=== PATIENT | male | born 1950 | race Caucasian/White ===

== ENCOUNTER 2024-09-02 09:58 | Inpatient (IN) | payer MEDICARE, BC, SELFPAY ==
[2024-09-02] VITALS (13 sets, daily range): BP systolic 130–177; BP diastolic 70–111; PULSE 75–91; RESP 18–22; TEMP 37–38; O2SAT 89–96; BMI 30.7
[2024-09-02 11:03] LABS: PCR FLU A Negative PCR FLU A (Negative); PCR FLU B Negative PCR FLU B (Negative); PCR RSV Negative PCR RSV (Negative); SARS PCR* Negative SARS-CoV-2 (Negative)
--- NOTE | 2024-09-02 12:29 | ED.GENADULT ---
HPI - General Adult General Date Seen: 09/02/24 Chief complaint: Cough Stated complaint: Had a cold now exhausted all time, confusion Time Seen by Provider: 09/02/24 12:22 History of Present Illness HPI narrative: 74 yo M with a past history including SVT, PVCs, palpitations, coronary artery disease, BPH, anemia. 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 Last week he was started on Xarelto for treatment of superficial thrombosis. He apparently has a fairly long segment of superficial thrombo phlebitis in the veins of his right thigh near the greater saphenous vein, close to a deep pain. Primary care is the [facility] system. Most recent follow-up visit for his leg superficial thrombus was on August 20. They started him a refill of Xarelto at that time. History is obtained from his today because the patient is very confused She notes that he had the swelling on his right proximal medial thigh last week and that has been getting better. He has been taking the Eliquis. She thinks he might have taken that this morning, but she is not sure. Earlier today, he told her that she took it. here in the ER, he says they did not take his morning meds. She says that last week he had a cold with nasal congestion, sore throat cough but the symptoms largely got better and had resolved by this weekend. He was feeling quite a bit better on Sunday was actually out of the house and running some errands. On Sunday started to feel a bit worse with generalized fatigue, feeling run down. He was resting in bed. He did have a little bit of ongoing cough but not much. No apparent shortness of breath. He has asthma but has not really been using his haler, we do not think. For the past couple of days he has been run down and lying in bed. has been concerned that he is not drinking enough fluids so she has been drinking fluids TM tab him push fluids. Today he was feeling worse. They actually have an appointment to be seen in the clinic but he was getting worse with his weakness and seemed little confused this morning so brought him here. She notes that he was a little off balance and confused this morning. No focal weakness or numbness in 1 arm or 1 leg. No known falls. She brought him here to the ER. In triage she is actually but getting worse. He is more confused now that he was this morning. He has felt warm and had some chills but has not had an objective fever. The patient is confused. Eyes are closed and opens to voice and gentle shoulder shake. GCS 13. When awake he does answer questions and follow simple commands. He requires assistance to sit up. When asked to lay on his back initially does not understand and then tries to roll over too far from his left shoulder to all the way to his right shoulder. Nonfocal confusion. When asked questions directly he says he did think he take his medicines this morning. He denies any pain. No headache. He is not nauseous. He is oriented to place and person but with thinks it is Sunday. reports that he would have a history of ?brain swelling about 20 years ago. He was evaluated and treated initially here at [place] and then was transferred to [facility]. I was able to look in the [facility] chart. I do see that he had a neurology consultation on 09/30/2004. Per neurology records from 09/30/2004... Mr. Rosales is usually in excellent health and very active. ?He has been ill with the flu with URI symptoms over the past week or so. ?He was feeling better on Sunday and was quite active 3 days prior to admission to [facility]. ?On Sunday, he felt quite a bit worse and his noted he was having trouble with speaking and some mildly agitated, possibly confused, behavior. ?In the evening, he had been in to the doctor I believe in the morning and was found to still have a fever. ?He was having a skin lesion followed up on. ?By , he was in bed with confused speech and not taking fluids. ?He was subsequently brought to the [facility] this morning and prior to transfer he had an LP that reportedly showed 11 white blood cells and 28 red blood cells; the white cells were monocytes. ?Protein was elevated at 90, glucose was 60. ?I do not actually have these numbers, this is what I remember I was told. ?He also had a CT scan that showed o obvious mass lesion or hemorrhage. ?No seizure activity has been witnessed ?He has no previous history of similar difficulties. ?There have been no complaints of headache, paralysis or numbness except in early September he was at a conference or a meeting where he sat with his arms crossed a lot, and he developed some numbness in his left little finger which has persisted. ?This is thought to possibly be due to ulnar nerve irritation. 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 ?He has a fever, confusion, no speech suggesting temporal lobe involvement. ?I should mention his neck is not stiff. ?His spinal fluid is borderline abnormal with 11 white blood cells and 28 red blood cells, protein was elevated at 90, all of which would be consistent with this. I would recommend that we go ahead and get an MRI scan, an EEG, cover him with acyclovir. ?He has already been started on broad spectrum antibiotics... Per discharge summary 10/13/2004... 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 He was discharged to inpatient rehab today. His symptoms started 2 weeks after an upper respiratory tract infection. He was experiencing cough and fevers and, then 2 days prior to hospitalization, he developed slurred speech, confusion and reduced level of consciousness. His brought him to the [place] where a CT scan of the head was negative. A lumbar puncture was negative. He was transferred to [facility] for neurologic consultation and further testing including EEG and MRI. 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 An MRI on 10/03 showed no evidence of intracranial hemorrhage or ischemia. The MRI was essentially negative except for sinusitis. An EEG showed diffuse slowing consistent with an encephalopathic process such as metabolic dysfunction or toxic encephalopathy. He was followed closely by Dr. Corral from the neurology service and Dr. Hinton from the infectious disease service. He received supportive care in the intensive care unit including fluid hydration, enteric tube feeds and oxygen. He continued to have fevers. Blood cultures, repeat lumbar puncture and urine cultures were negative. He had positive influenza A IgG, but negative influenza A IgM. His neurologic status gradually improved, and he became more awake on the 3 days leading to discharge to inpatient rehabilitation. His fevers resolved. He has persistent neurologic deficits including slurred speech, double vision and some cognitive deficits. Dr. Corral ordered a repeat MRI with gadolinium which revealed new abnormal signal in the milagros and lower midbrain. The signal abnormalities are consistent with an inflammatory process and less likely due to an infarction. He has improved rapidly in the last few days, however, he had increased lower leg weakness yesterday so Dr. Corral ordered another LP concerned about a demyelinating process. ?Dr. Corral will follow him at [facility]. ?Dr. Turner from [facility] has been following him on the floor and will direct his admission to [facility] today. ? He has dysphasia following the viral encephalitis. His swallow has been evaluated by speech pathology and today he advanced to a regular diet. He was hypertensive and started on a beta milton. His blood pressure is well-controlled. She is on a proton pump inhibitor for prophylaxis. He is also on subcutaneous heparin for prophylaxis. He had high blood sugars requiring NPH and sliding scale insulin which have now been discontinued. He will be discharged to inpatient rehabilitation today. We will fax the MRI and EEG reports to your office for your records. He hopes to be discharged to home as soon as possible. Please call me with any questions. My pager is [phone]. DISCHARGE DIAGNOSES 1. 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 HSV PCR negative x2. Elevated influenza A IgG but negative influenza A IgM. Repeating influenza A IgG titer to compare pending. Followed by Dr. Hinton from infectious disease. Followed by Dr. Corral from neurology. 2. Viral encephalitis - presented with decreased level of consciousness, slurred speech and confusion 2 weeks following a febrile illness. Initial MRI negative. A followup MRI with gadolinium on 10/12 showing new inflammatory abnormality in the milagros and lower midbrain. Inpatient rehabilitation at [facility]. 3. Dysphasia - resolved. 4. Slurred speech and vision changes - secondary to brainstem inflammation from presumed viral encephalitis. 5. Hypertension - controlled on metoprolol 50 mg b.i.d. 6. Nutrition - status post tube feeds, now on a dysphasia diet. Related Data Home Medications ?Medication ?Instructions ?Recorded ?Confirmed diltiazem HCl 180 mg mg PO DAILY 09/02/24 capsule,extended release 24 hr, controlled (DILT-XR) mometasone-formoterol HFA 200 2 puff inhalation 09/02/24 mcg-5 mcg/actuation aerosol inhaler (Dulera) omeprazole 40 mg capsule,delayed mg DAILY 09/02/24 release rivaroxaban 15 mg tablet (Xarelto) 15 mg PO BID 09/02/24 09/02/24 simvastatin 20 mg tablet mg 09/02/24 tamsulosin 0.4 mg capsule mg PO DAILY 09/02/24 Allergies Allergy/AdvReac Type Severity Reaction Status Date / Time No Known Drug Allergies Allergy Verified 09/02/24 10:16 [facility] Social History Non-prescribed substance use: denies use service: No Exam Narrative: Exam Narrative: Primary Survey: A- patent. Speech slightly slurred. Phonation normal. No stridor. B- breathing easily. Lung sounds clear and equal. Oxygen saturation normal on room air C- no active bleeding. Blood pressure stable. Symmetric pulses and cap refill in 4 extremities. D- drowsy and oriented over the to person and place but not date. GCS 13. No focal deficits Constitutional: Appears well-developed and well-nourished.. Robust-appearing laying in bed on his left shoulder. He is drowsy and his provides his initial history. When I talked to him and gently touches shoulder he wakes up in opens his eyes. He seems drowsy and speech is slurred. HENT: Head: Atraumatic. Nose: Nose normal. Mouth/Throat: Oral mucosa is clear but dry, not desiccated or cracked. no trismus. Pharynx normal. Tonsils symmetric. No tonsillar enlargement, erythema, or exudate. Eyes: Conjunctivae normal. EOM normal. Pupils equal, round, and reactive to light. No scleral icterus. Neck: Normal range of motion. Neck supple. No tracheal deviation present. Cardiovascular: Normal rate, regular rhythm. No gallop. No friction rub. No murmur heard. Symmetric radial artery pulses Pulmonary/Chest: Effort normal. No stridor. No respiratory distress. No wheezes. No rales. No rhonchi . No tenderness. Abdominal: Soft. Bowel sounds normal. No distension. No mass. No tenderness. No rebound. No guarding. No CVA tenderness Musculoskeletal: RUE: Normal range of motion. No tenderness. No deformity LUE: Normal range of motion. No tenderness. No deformity RLE: Normal range of motion. No edema. No tenderness. No deformity. He shows me the area on his right proximal thigh where the clot had been. There is perhaps a palpable cord there but no overlying redness. No bruising. No fluctuance or crepitus LLE: Normal range of motion. No edema. No tenderness. No deformity Lymph: No cervical adenopathy. Neurological: Drowsy. GCS 13. Mental status normal. Attention normal. Alert and oriented x3. GCS 15. Memory normal. Speech fluent. Cognition normal. Cranial Nerves intact II-XII except I did not formally test gag or visual acuity. EOMI. Palate elevates symmetrically and tongue protrudes in the midline. Strength: 5/5 trapezius on the right and left 5/5 deltoid on the right and left 5/5 biceps on the right and left 5/5 triceps on the right and left 5/5 assistant sales director on the right and left 5/5 thumb opposition on the right and left 5/5 finger abduction on the right and left 5/5 hip flexors (L3) on the right and left 5/5 quadriceps (L4) on the right and left 5/5 tibialis anterior on the right and left 5/5 EHL (L5) on the right and left 5/5 gastrocnemius (S1) on the right and left 5/5 hamstring on the right and left Sensation intact to light touch in both upper extremities (C4-T1) Sensation intact to light touch in Both lower extremities (L4-S1). coordination normal. He is able to stand at the bedside. When asked when move sideways to reposition he requires some repetitive instruction because he does not understand Skin: Skin is warm and dry. No rash noted. No pallor. Normal capillary refill. Psychiatric: Normal mood. Normal affect. Const: Vital Signs, click to edit/add: Vital Signs - 24 hr 09/02/24 10:10 09/02/24 12:36 09/02/24 15:00 Temperature 98.6 F 99.0 F Pulse Rate [Pulse Oximeter] 77 80 75 Respiratory Rate 18 20 22 Blood Pressure [Ri ght Upper Arm] 163/95 H 177/111 H 171/80 H Pulse Oximetry 96 95 92 Oxygen Delivery Me thod Room Air Room Air Room Air 09/02/24 16:28 09/02/24 18:43 09/02/24 19:48 Temperature 100.2 F H 100.4 F H Pulse Rate [Pulse Oximeter] 79 Respiratory Rate 20 Blood Pressure [Ri ght Upper Arm] 167/81 H Pulse Oximetry 94 Oxygen Delivery Me thod Room Air Course Course ED Course: Recheck-a hemodynamically stable, has finished antibiotics and steroids. Still confused but able to stand at the bedside. is assisting him to hold his urine oral to urinate. After he is done urinating she has to remind him to like over the urine also she can set it down. He needs direction and assistance climbing back into bed because of confusion. He is otherwise calm and cooperative. Drowsy and sedate, not agitated. Reevaluation(s) Reevaluation #1: Recheck-still laying in bed. GCS still about 13. Arouses sometimes shoulder shaken sometimes to voice. Mental status is been fluctuating. Overall speech is little bit quieter and more slurred. Breathing easily. Protecting his airway Discussed with neurology from [facility], Dr. Leal. She agrees that we the patient does meet criteria for transfer for neurology consult. She thinks he needs EEG (but not on an emergent basis) and MRI. Lumbar puncture when it is safe after a. After is being off Eliquis. Likely LP after 3 days. Unfortunately there are no beds in the [facility] system. Will put him on the wait list. Dr. Leal does not feel like he needs to jump the wait list or do an ER to ER emergency transfer at this time. She understands this this likely means he will have to board here in [place]. [facility] transfer system will put him on the wait list. They know it is a long wait list and they cannot give me a time when a bed would be available. Probably not even this evening. Recheck-we were searching for other [facility]. There are no beds available in the [facility], [facility], [facility], [facility]. No other beds in the [facility] or [facility]. Reevaluation #2: Recheck-removed him from ER room to to ER room 5 for better space for him in his family. GCS remains about 12 or 13. Still seems a little bit more drowsy overall with less periods of alertness and more periods of drowsiness. Still protecting his airway. Reevaluation #3: Recheck-I did receive a phone call back from Neurology at [facility]. I spoke with Dr. Dodd. He agrees that the patient would be criteria for transfer and they would accept the patient to [facility]. However they have no beds. They cannot place the patient on the wait list. They advised me to call back tomorrow to recheck or if I need more consultation. Additional Reevaluation(s): Recheck-discussed with our hospitalist, Dr. Guo. He would agree to admit this patient to the medical floor here for his period of observation in tele bed opens up at [facility] or elsewhere. However nursing staff to not have capacity to take the patient to the floor. Therefore he will have to board here in the ER. Vital Signs Vital signs: Initial Vital Signs Temperature 98.6 F 09/02/24 10:10 Temperature Source Temporal Artery Scan 09/02/24 10:10 Pulse Rate 77 09/02/24 10:10 Respiratory Rate 18 09/02/24 10:10 Blood Pressure 163/95 H 09/02/24 10:10 Blood Pressure Mean 117 H 09/02/24 10:10 Blood Pressure Position Sitting 09/02/24 10:10 Pulse Oximetry 96 09/02/24 10:10 Oxygen Delivery Method Room Air 09/02/24 10:10 Vital Signs Temperature 98.6 F 09/02/24 10:10 Pulse Rate 77 09/02/24 10:10 Respiratory Rate 18 09/02/24 10:10 Blood Pressure 163/95 H 09/02/24 10:10 Pulse Oximetry 96 09/02/24 10:10 Oxygen Delivery Method Room Air 09/02/24 10:10 Temperature 100.4 F H 09/02/24 19:48 Pulse Rate 79 09/02/24 16:28 Respiratory Rate 20 09/02/24 16:28 Blood Pressure 167/81 H 09/02/24 16:28 Pulse Oximetry 94 09/02/24 16:28 Oxygen Delivery Method Room Air 09/02/24 16:28 Medications Administered Medications: Generic Name Dose Route Start Last Admin Trade Name Freq PRN Reason Stop Dose Admin Acetaminophen 650 mg 09/02/24 18:49 09/02/24 19:48 Acetaminophen 650 Mg Supp GA 650 mg Q6H PRN Administration Vancomycin/PEG/NADA/Lysine/Water 1 gm in 200 mls @ 200 mls/hr 09/03/24 06:00 09/02/24 18:55 Vancomycin 1 Gm/200 Ml IVPB 200 mls/hr Q12H GENIA Administration Discontinued Medications Generic Name Dose Route Start Last Admin Trade Name Vinicius RAMEY Reason Stop Dose Admin Dexamethasone 10 mg 09/02/24 12:47 09/02/24 13:19 Dexamethasone 10 Mg/Ml Inj IVP 09/02/24 12:48 10 mg ONCE ONE Administration Ceftriaxone Sodium 2 gm/ 100 mls @ 200 mls/hr 09/02/24 12:47 09/02/24 14:58 Sodium Chloride IVPB 09/02/24 12:48 Infused ONCE ONE Infusion Azithromycin 500 mg/ Sodium 255 mls @ 255 mls/hr 09/02/24 12:47 09/02/24 16:27 Chloride IVPB 09/02/24 12:48 Infused ONCE ONE Infusion Sodium Chloride 1,000 mls @ 1,000 mls/hr 09/02/24 13:00 09/02/24 14:58 0.9 % Sodium Chloride 1000 Ml IV 09/02/24 13:59 Infused .Q1H GENIA Infusion Acyclovir Sodium 750 mg/ 115 mls @ 115 mls/hr 09/02/24 16:52 09/02/24 18:41 Sodium Chloride IVPB 09/02/24 16:53 Infused ONCE ONE Infusion Vancomycin/PEG/NADA/Lysine/Water 2 gm in 400 mls @ 200 mls/hr 09/02/24 18:05 09/02/24 19:11 Vancomycin 2 Gm/400 Ml IVPB 09/02/24 20:04 200 mls/hr ONCE ONE Administration Protocol Lorazepam 1 mg 09/02/24 13:29 09/02/24 13:36 Lorazepam 2 Mg/Ml Inj IVP 09/02/24 13:30 1 mg ONCE ONE Administration Lorazepam 1 mg 09/02/24 17:00 09/02/24 17:07 Lorazepam 2 Mg/Ml Inj IVP 09/02/24 17:01 1 mg ONCE ONE Administration Medical Decision Making MDM Narrative Medical decision making narrative: 74-year-old gentleman who is generally robust, living at home with his , presents to the ER today with altered mental status and generalized, nonfocal confusion. He has been sick since last week with URI symptoms with the symptoms largely got better 3 or 4 days ago on Saturday. He started having progressive weakness on Sunday, with mild confusion yesterday on Sunday a, and more significant nonfocal confusion today Nasopharyngeal swab is negative for COVID, flu, RSV. He was recently started on Eliquis for a fairly extensive but superficial clot in his right thigh. Technically not a DVT but since it was close to the the circulation he was started. This raises concern for possible intracranial hemorrhage. Head CT is obtained is fortunately negative. Symptoms are really not suggestive for an acute ischemic stroke with generalized nonfocal confusion With his cough and reported trouble breathing we did consider possible pneumonia or PE. With his recent lower extremity clot, I did not feel that it simple D-dimer screening would be high in of sensitivity to rule out PE. Therefore, CT PA is obtained and is fortunately negative for PE. CT scan does not show any focal consolidation to suggest a community-acquired pneumonia. Differential for his confusion is broad. Blood sugar is normal. BUN and creatinine are normal, no evidence for azotemia. Sodium and electrolytes are normal. LFTs are normal. He has no history of liver failure to raise concern for hepatic encephalopathy. No abdominal pain or tenderness to raise concern for abdominal infection. Consider possible atypical presentation of acute coronary syndrome. EKG is nonischemic and troponin is undetectable. Consider possible infections. Urinalysis is normal. Blood cultures are pending. Started on IV steroids and antibiotics and IV antivirals with concern for possible meningitis or encephalitis. Lumbar puncture is contraindicated by current Eliquis use. Most likely he took his last dose this morning and per guidelines typically would avoid neurazial procedures for 72 hours after last dose Due to the risk of spinal epidural hematoma, since we think he probably took his Eliquis this morning, will hold off on LP for now. In my review of guidelines, typically would avoid no rack seal procedures such as lumbar puncture for 72 hours after last dose of Eliquis. Per advice of Neurology from [facility] they would hold off on LP for 24 hours and pursue the test thereafter. Discussed the rationale for deferring LP with the patients family. They verbalized understanding I have ordered empiric Rocephin, vancomycin. Repeat vancomycin does is also ordered through pharmacy consult. I have also ordered q.8 hours weight based acyclovir. I have ordered maintenance IV fluids. Patient will board here in the ER. Family understands that if the patient's mental status continues to deteriorate or if you lose his airway, he will have to be intubated. At this point although he is drowsy he is maintaining his airway and intubation is not indicated. Discussed with my oncoming partner, Dr. Naik. Lab Data Labs: Lab Results 09/02/24 09/02/24 09/02/24 Range/Units 10:20 12:50 14:15 WBC 5.11 (4.50-11.00) K/uL RBC 5.30 (4.30-5.90) m/uL Hgb 11.7 L (13.5-17.5) gm/dL Hct 39.5 (37.0-53.0) % MCV 75 L (80-100) fL MCH 22 L (26-34) pg MCHC 30 L (32-36) gm/dL RDW Coeff of Julien 17.1 H (11.5-15.5) % Plt Count 263 (140-440) K/uL Neut % (Auto) 73.4 H (42.0-72.0) % Lymph % (Auto) 16.6 L (20-44) % [place] % (Auto) 9.2 (0.0-11.0) % Eos % (Auto) 0.0 (0.0-7.0) % Baso % (Auto) 0.4 (0.0-3.0) % Neut # (Auto) 3.80 (1.7-7.0) K/uL Lymph # (Auto) 0.80 L (0.90-2.90) K/uL [place] # (Auto) 0.50 (0.00-0.90) K/UL Eos # (Auto) 0.00 (0.00-0.50) K/uL Baso # (Auto) 0.02 (0.00-0.30) K/uL Abs Immat Gran (auto) 0.02 (0.00-0.30) K/uL Imm/Tot Granulo (auto) 0.4 % Diff Slide Review Acceptable Review (Acceptable) ESR (2-15) mm/hr VBG pH 7.453 H (7.32-7.43) VBG pCO2 38 L (40-50) mmHG VBG pO2 66.0 H (25-47) mmHG VBG HCO3 27 (21-28) mmol/L Sodium 136 (135-149) mmol/L Potassium 3.8 (3.6-5.1) mmol/L Chloride 101 (96-114) mmol/L Carbon Dioxide 23 (20-32) mmol/L Anion Gap 12 (7-15) mEq/L BUN 10 (7-30) mg/dL Creatinine 1.0 (0.5-1.5) mg/dL Estimated Creat Clear 60.26 Estimated GFR 80 ml/min Glucose 108 (60-115) mg/dL Lactate 1.2 (0.5-1.9) mmol/L Calcium 8.6 (8.4-10.6) mg/dL Total Bilirubin 0.8 (0.1-1.5) mg/dL AST 23 (12-35) U/L ALT 20 (4-50) U/L Alkaline Phosphatase 76 (40-150) U/L Troponin I < 0.01 L (0.01-0.04) ng/mL C-Reactive Protein (0.5-1.0) mg/dL Total Protein 7.7 (6.0-8.3) g/dL Albumin 4.3 (3.3-5.0) g/dL Procalcitonin (<0.50) ng/mL Urine Color Yellow (Yellow) Urine Appearance Clear (Clear) Urine pH 6.0 (5.0-8.5) Ur Specific [place] 1.010 (1.000-1.030) Urine Protein Negative (Negative) Urine Glucose (UA) Negative (Negative) Urine Ketones 1+ A (Negative) Urine Blood Negative (Negative) Urine Nitrite Negative (Negative) Urine Bilirubin Negative (Negative) Urine Urobilinogen 0.2 (0.2-1.0) Ur Leukocyte Esterase Negative (Negative) Urine RBC 0-2 (0-2) Urine WBC 0-2 (0-5) Ur Squamous Epith Cells None (None-Few) Urine Bacteria None (None) SARS-CoV-2 (PCR) Negative SARS-CoV-2 (Negative) Influenza Type A (PCR) Negative PCR FLU A (Negative) Influenza Type B (PCR) Negative PCR FLU B (Negative) RSV (PCR) Negative PCR RSV (Negative) 09/02/24 Range/Units 16:30 WBC (4.50-11.00) K/uL RBC (4.30-5.90) m/uL Hgb (13.5-17.5) gm/dL Hct (37.0-53.0) % MCV (80-100) fL MCH (26-34) pg MCHC (32-36) gm/dL RDW Coeff of Julien (11.5-15.5) % Plt Count (140-440) K/uL Neut % (Auto) (42.0-72.0) % Lymph % (Auto) (20-44) % [place] % (Auto) (0.0-11.0) % Eos % (Auto) (0.0-7.0) % Baso % (Auto) (0.0-3.0) % Neut # (Auto) (1.7-7.0) K/uL Lymph # (Auto) (0.90-2.90) K/uL [place] # (Auto) (0.00-0.90) K/UL Eos # (Auto) (0.00-0.50) K/uL Baso # (Auto) (0.00-0.30) K/uL Abs Immat Gran (auto) (0.00-0.30) K/uL Imm/Tot Granulo (auto) % Diff Slide Review (Acceptable) ESR 26 H (2-15) mm/hr VBG pH (7.32-7.43) VBG pCO2 (40-50) mmHG VBG pO2 (25-47) mmHG VBG HCO3 (21-28) mmol/L Sodium (135-149) mmol/L Potassium (3.6-5.1) mmol/L Chloride (96-114) mmol/L Carbon Dioxide (20-32) mmol/L Anion Gap (7-15) mEq/L BUN (7-30) mg/dL Creatinine (0.5-1.5) mg/dL Estimated Creat Clear Estimated GFR ml/min Glucose (60-115) mg/dL Lactate (0.5-1.9) mmol/L Calcium (8.4-10.6) mg/dL Total Bilirubin (0.1-1.5) mg/dL AST (12-35) U/L ALT (4-50) U/L Alkaline Phosphatase (40-150) U/L Troponin I (0.01-0.04) ng/mL C-Reactive Protein 0.7 (0.5-1.0) mg/dL Total Protein (6.0-8.3) g/dL Albumin (3.3-5.0) g/dL Procalcitonin 0.06 (<0.50) ng/mL Urine Color (Yellow) Urine Appearance (Clear) Urine pH (5.0-8.5) Ur Specific [place] (1.000-1.030) Urine Protein (Negative) Urine Glucose (UA) (Negative) Urine Ketones (Negative) Urine Blood (Negative) Urine Nitrite (Negative) Urine Bilirubin (Negative) Urine Urobilinogen (0.2-1.0) Ur Leukocyte Esterase (Negative) Urine RBC (0-2) Urine WBC (0-5) Ur Squamous Epith Cells (None-Few) Urine Bacteria (None) SARS-CoV-2 (PCR) (Negative) Influenza Type A (PCR) (Negative) Influenza Type B (PCR) (Negative) RSV (PCR) (Negative) Imaging Data CT scan - chest: Attestation: I have reviewed the pertinent imaging results. Radiologist's impression: IMPRESSION: 1. No pulmonary embolus. No CT evidence of right heart strain. 2. Cardiomegaly with mild pulmonary vascular congestion. Mildly enlarged main pulmonary artery is nonspecific and can be seen the setting of pulmonary arterial hypertension. CT scan - head: Attestation: I have reviewed the pertinent imaging results. Radiologist's impression: Impression: 1. 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 ECG Data Attestation: I personally reviewed and interpreted this ECG as follows: Interpretation: Normal sinus rhythm with marked sinus arrhythmia Rate: 91 GA: 148 QRS axis: Normal axis. No pathologic Q-waves. ST segment/T wave: No ST segment elevation or depression QTc: 455 Discharge Plan Discharge Prescriptions: No Action omeprazole 40 mg capsule,delayed release(DR/EC) DAILY tamsulosin 0.4 mg capsule PO DAILY simvastatin 20 mg tablet diltiazem HCl [DILT-XR] 180 mg capsule,ext.rel 24h degradable PO DAILY Dulera 200-5 mcg/actuation HFA aerosol inhaler 2 puff INHALATION Xarelto 15 mg tablet 15 mg PO BID Follow Up/Referrals: Mayo Johnson MD [Primary Care Provider] -
[2024-09-02 13:03] LABS: HCO3 VBG 27 mmol/L (21-28); Lactate Sepsis w/Reflex* 1.2 mmol/L (0.5-1.9); PCO2 VBG 38 mmHG (40-50); pH VBG 7.453 (7.32-7.43)
[2024-09-02 13:07] LABS: Basophils Absolute Auto 0.02 K/uL (0.00-0.30); Basophils Percent Auto 0.4 % (0.0-3.0); Hematocrit 39.5 % (37.0-53.0); Hemoglobin* 11.7 gm/dL (13.5-17.5); Immature Granulocytes Abs Auto 0.02 K/uL (0.00-0.30); Immature Granulocytes Pct Auto 0.4 %; Lymphocytes Percent Auto 16.6 % (20-44); Mean Corpuscular HGB Conc 30 gm/dL (32-36); Mean Corpuscular Hemoglobin 22 pg (26-34); Mean Corpuscular Volume 75 fL (80-100); Monocytes Percent Auto 9.2 % (0.0-11.0); Neutrophils Percent Auto 73.4 % (42.0-72.0); Platelet Count* 263 K/uL (140-440); RDW Coefficient of Variation % 17.1 % (11.5-15.5); White Blood Count* 5.11 K/uL (4.50-11.00)
[2024-09-02 13:13] LABS: Slide Review Reflex Yes
[2024-09-02] MEDS: dexAMETHasone 10 MG/ML inj IVP (13:19)
[2024-09-02] MEDS: cefTRIAXone 2 GM in 0.9 % SODIUM CHLORIDE Mini-bag 100 ML IVPB (13:19)
[2024-09-02 13:21] LABS: Albumin* 4.3 g/dL (3.3-5.0); Chloride* 101 mmol/L (96-114)
[2024-09-02 13:22] LABS: Potassium* 3.8 mmol/L (3.6-5.1); Sodium* 136 mmol/L (135-149)
[2024-09-02 13:24] LABS: Alkaline Phosphatase* 76 U/L (40-150); Anion Gap 12 mEq/L (7-15); Aspartate Amino Transferase* 23 U/L (12-35); Bilirubin Total* 0.8 mg/dL (0.1-1.5); Blood Urea Nitrogen* 10 mg/dL (7-30); Carbon Dioxide* 23 mmol/L (20-32); Est. Creatinine Clearance* 60.26; Estimated Glomerular Filt Rate 80 ml/min; Glucose* 108 mg/dL (60-115); Total Protein* 7.7 g/dL (6.0-8.3)
[2024-09-02 13:25] LABS: Alanine Aminotransferase* 20 U/L (4-50); Calcium* 8.6 mg/dL (8.4-10.6)
[2024-09-02 13:32] LABS: Slide Review Acceptable Review (Acceptable)
[2024-09-02] MEDS: LORazepam 2 MG/ML inj 1 MG IVP ×2 (13:36→17:07)
--- NOTE | 2024-09-02 13:36 | ED.NURSE ---
Patient given ativan to help stay still during CT scan. Patient keeps trying to get up and needing to be redirected to lay back down. Transported to CT.
[2024-09-02 13:41] LABS: Troponin I* < 0.01 ng/mL (0.01-0.04)
[2024-09-02] MEDS: 0.9 % SODIUM CHLORIDE 1000 ml 1,000 ML IV (14:14)
[2024-09-02 14:36] LABS: Appearance Urine Clear (Clear); Bilirubin Urine Negative (Negative); Blood Urine Negative (Negative); Color Urine Yellow (Yellow); Glucose Urine Negative (Negative); Ketones Urine 1+ (Negative); Leukocyte Esterase Urine Negative (Negative); Nitrite Urine Negative (Negative); Protein Urine Negative (Negative); Urobilinogen Urine 0.2 (0.2-1.0)
[2024-09-02 14:49] LABS: RBC Urine 0-2 (0-2); WBC Urine 0-2 (0-5)
[2024-09-02] MEDS: AZITHROMYCIN 500 MG in 0.9 % SODIUM CHLORIDE 250 ml 250 ML 255 MG IVPB (14:53)
[2024-09-02 16:43] LABS: C Reactive Protein* 0.7 mg/dL (0.5-1.0)
[2024-09-02 16:56] LABS: Procalcitonin* 0.06 ng/mL (<0.50)
[2024-09-02 17:18] LABS: Erythrocyte SedimentationRate* 26 mm/hr (2-15)
[2024-09-02] MEDS: SODIUM CHLORIDE 0.9% IVPB (17:36)
[2024-09-02] MEDS: ACYCLOVIR SODIUM IVPB (17:36)
[2024-09-02] MEDS: VANCOMYCIN 1 GM/200 ML 1 GM/200 ML PIGGYBACK IVPB (18:55)
[2024-09-02] MEDS: VANCOMYCIN 2 GM/400 ML 2 GM/400 ML PIGGYBACK IVPB (19:11)
[2024-09-02] MEDS: ACETAMINOPHEN 650 MG SUPP PR (19:48)
[2024-09-02] MEDS: 5 % DEXTROSE IN LAC RINGER'S 1,000 ML 125 ML IV (20:29)
--- NOTE | 2024-09-03 00:43 | ED.NURSE ---
After lab draw requests that neuro checks be on a need only basis and would prefer for her to get a good nights sleep. is staying in the room overnight. knows to use call light for any needs.
[2024-09-03 00:46] LABS: Carboxyhemoglobin* 2.2 % (0.0-5.0)
[2024-09-03] MEDS: ACYCLOVIR SODIUM IVPB ×3 (01:00→16:14)
[2024-09-03] MEDS: SODIUM CHLORIDE 0.9% IVPB ×3 (01:00→16:14)
[2024-09-03 01:06] LABS: Ammonia* < 8.7 umol/L (13.1-30.0)
[2024-09-03 07:17] VITALS: BP 172/97; PULSE 64; RESP 16; O2SAT 95
[2024-09-03 07:53] VITALS: TEMP 36.9
[2024-09-03 09:53] VITALS: BP 132/68; PULSE 50; RESP 16; O2SAT 95
[2024-09-03 10:32] LABS: Basophils Absolute Auto 0.01 K/uL (0.00-0.30); Basophils Percent Auto 0.1 % (0.0-3.0); Hematocrit 37.2 % (37.0-53.0); Immature Granulocytes Abs Auto 0.02 K/uL (0.00-0.30); Immature Granulocytes Pct Auto 0.3 %; Lymphocytes Percent Auto 10.5 % (20-44); Mean Corpuscular HGB Conc 30 gm/dL (32-36); Mean Corpuscular Hemoglobin 22 pg (26-34); Mean Corpuscular Volume 74 fL (80-100); Monocytes Percent Auto 8.9 % (0.0-11.0); Neutrophils Percent Auto 80.2 % (42.0-72.0); Platelet Count* 290 K/uL (140-440); RDW Coefficient of Variation % 17.3 % (11.5-15.5); White Blood Count* 7.16 K/uL (4.50-11.00)
[2024-09-03 10:41] LABS: Slide Review Reflex Yes
[2024-09-03 10:43] LABS: Ethanol* < 0.01 % (0.01-0.03)
[2024-09-03 10:47] LABS: Chloride* 104 mmol/L (96-114); Sodium* 138 mmol/L (135-149)
[2024-09-03 10:48] LABS: Potassium* 3.8 mmol/L (3.6-5.1)
[2024-09-03 10:50] LABS: Anion Gap 8 mEq/L (7-15); Carbon Dioxide* 26 mmol/L (20-32); Creatinine* 0.9 mg/dL (0.5-1.5); Est. Creatinine Clearance* 60.26; Estimated Glomerular Filt Rate 91 ml/min
[2024-09-03 10:51] LABS: Blood Urea Nitrogen* 15 mg/dL (7-30); Calcium* 8.8 mg/dL (8.4-10.6); Glucose* 137 mg/dL (60-115)
[2024-09-03 11:02] LABS: Slide Review Acceptable Review (Acceptable)
[2024-09-03 12:12] VITALS: BP 153/90; PULSE 81; RESP 20; O2SAT 96
--- OUTSIDE RECORDS SUMMARY | 2024-09-03 13:31 | XMS_ITS | Clinical Summary ---
Author Organization [employer] [facility] Address [place], [place] [address] Care Team Providers Care Clinical Provider Trainer Name Role Phone Mayo Johnson MD Primary Care Provider [phone] Allergies No known active allergies Medications budesonide-formote roL (SYMBICORT) 80-4.5 mcg/actuation (80-4.5 mcg each actuation) inhalerIndications :Mild persistent asthma without complication Inhale 2 Puffs by mouth two times daily. 1 Each 4 Active fluticasone propion-salmeteroL (ADVAIR) 250-50 mcg/Dose diskus inhalerIndications :Mild persistent asthma without complication Inhale 1 Puff by mouth every 12 hours. 1 Each 4 Active omeprazole (PRILOSEC) 40 mg Delayed-Release capsuleIndications :Gastroesophageal reflux disease, unspecified whether esophagitis present Take 1 Capsule (40 mg) by mouth once daily before a meal. 90 Capsule 3 4 Active dilTIAZem (DILACOR XR; DILTIA XT) 180 mg Extended-Release capsuleIndications :NSVT (nonsustained ventricular tachycardia) (HC) Take 1 Capsule (180 mg) by mouth once daily. 90 Capsule 3 4 Active mometasone-formote rol (Dulera) 100-5 mcg/actuation inhalerIndications :Asthma, unspecified asthma severity, unspecified whether complicated, unspecified whether persistent Inhale 2 Puffs by mouth two times daily. 13 g 11 4 Active tamsulosin 0.4 mg capsuleIndications :Hypertrophy of prostate without urinary obstruction TAKE 1 CAPSULE(0.4 MG) BY MOUTH AT BEDTIME 90 Capsule 4 Active simvastatin (ZOCOR) 20 mg tabletIndications: Hyperlipidemia, unspecified hyperlipidemia type TAKE 1 TABLET(20 MG) BY MOUTH AT BEDTIME 30 Tablet 4 Active rivaroxaban (XARELTO) 15 mg tab tabletIndications: deep venous thrombosis Take 1 Tablet (15 mg) by mouth two times daily with meals. Wait until they call for this. 140 Tablet 5 Active tadalafiL (CIALIS;ADCIRCA) 20 mg tabletIndications: Impotence of organic origin Take 1 tablet by mouth once daily if needed for Erectile Dysfunction. Wait until they call for this. 36 tablet. 6 0 025 Discontin ued(*Nunu ent states no longer taking) apixaban (ELIQUIS) 5 mg tabletIndications: Thrombophlebitis of superficial veins of right lower extremity Take 2 Tablets (10 mg) by mouth two times daily for 7 days. 28 Tablet 5 025 Discontin ued(*Med complete/ Regimen complete/ Level of care change) rivaroxaban (XARELTO) 15 mg tab tabletIndications: Thrombophlebitis of superficial veins of right lower extremity Take 1 Tablet (15 mg) by mouth two times daily with meals for 21 days. Please compare to Eliquis with patient prior to filling. 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 Scanner 1 scan: (1-Ord) [facility], HEAD/BRAIN W/O CONTRAST, 09/02/2024 09/02/2024 Nurse Triage [facility] [address] [place] [address] Gabriela Carbone PA Confusion 09/02/2024 Travel 09/01/2024 Telephone [facility] [address] [place] [address] Raymond Lake MD Chart Review 08/31/2024 Telephone [facility] [address] [place] [address] Mayo Johnson MD Abnormal Lab Results 08/22/2024 Orders Only [facility] [address] [facility] [place] [address] Em Martin MD <No scans attached> 08/21/2024 Telephone [facility] [address] [place] [address] Denise Deshpande, TREY Appointment 08/20/2024 3:15 PM FORENSIC INVESTIGATOR Office Visit [facility] [address] [place] [address] Mayo Johnson MD Follow Up (Right leg bumpy spot and discuss low iron) 08/20/2024 1:45 PM FORENSIC INVESTIGATOR Orders Only [facility] [address] [place] [address] Lab, [facility] 08/20/2024 Travel 08/18/2024 Telephone [facility] [address] [place] [address] Gabriela Carbone PA Prior Authorization (ELIQUIS 5 mg tablet APPROVED (08/15/2024-08/05/2025)) 08/18/2024 Telephone [facility] [address] [place] [address] Mayo Johnson MD Questions (Lab) 08/15/2024 11:15 AM FORENSIC INVESTIGATOR Ancillary Procedure [facility] [address] [place] [address] 08/15/2024 8:35 AM FORENSIC INVESTIGATOR Office Visit [facility] [address] [place] [address] Gabriela Carbone PA Leg Pain/problem 08/15/2024 Travel 08/02/2024 Refill [facility] [address] [place] [address] Jose Vasquez, DO Refill Request (Simvastatin) 07/29/2024 Telephone [facility] [place] [address] [facility] [address] [place] [phone] Edilson Guerrier MD Follow Up 07/29/2024 Refill [facility] [address] [place] [address] Jose Vasquez, DO Refill Request (Simvastatin) 06/06/2024 Refill [facility] [address] [place] [address] Jose Vasquez, DO Refill Request (Tamsulosin) 06/05/[address] [facility] Scanner 1 scan: (1-Ord) [facility], SHAVE BIOPSY, 06/05/2024 from Last 3 Months Immunizations Name Administration Dates Next Due Amb Influenza, Inactivated A IIV4 (Age 65+ Years) Preserv Free 05/18/2020 COVID-19 vaccine (Poly Adaptive NTech 30mcg/0.3mL) PF, MDV 10/30/2020,10/09/2020 Hepatitis A (Adult) 12/04/2013 Influenza, High-dose Inactivated 06/02/2019 Influenza, High-dose Quadriv alent Inactivated 05/06/2023,07/02/2022,06/04/2021 Influenza, IIV3 (Age >=3 years) 07/10/2007,06/27 Influenza, IIV4 07/21/2016 Influenza, Inactivated IIV3 (Age 65+ Years) Preserv Free 08/08/2024,09/17/2017 Pneumococcal Poly,23-Valent (Pneumovax) 07/16/20 20 Pneumococcal conj 13-Valent (Prevnar 13) 018 RSV, Bivalent Vaccine Recons tituted (Abrysvo 120MCG/0.5mL) 05/06/2023 Tdap 04/07/2011 Typhoid (injectable) 12/04/2013 Zoster (Shingrix-RZV, recombinant) 08/08/2024, Family History Medical History Relation Name Comments Asthma Brother Cancer Father stomach cancer at age 79 Allergies Mother hay fever COPD Mother of copd an d old age at 92 Good Health Sister Relation Name Status Comments Brother Father (Age 79) Mother (Age 92) Sister Social History Tobacco Use Types Packs/Day Years Used Date Smoking Tobacco: Never Smokeless Tobacco: Never Tobacco Cessation:Counseling Given: Yes Alcohol Use Standard Drinks/Week Comments Yes 0 (1 standard drink = 0.6 oz pur e alcohol) 0-1 month PHQ-2 Answer Date Recorded PHQ-2 TOTAL SCORE 0 08/20/2024 Social Connections Answer Date Recorded Do you often feel lonely or isolated from those around you? 0 03/22/2024 Financial Resource Strain Answer Date R ecorded Difficulty of Paying Living Expenses 3 03/22/2024 Difficulty of Paying Living Expenses Not on file 03/22/2024 Food Insecurity Answer Date Recorded Do you worry your food will run out before you are able to buy more? 1 03/22/2024 Transportation Needs Answer Date Record ed Does lack of transportation keep you from medica l appointments? 1 03/22/2024 Does lack of transportation keep you from work, meetings or getting things that you need? 1 03/22/2024 Housing Stability Answer Date Recorded What is your housing situation today? 1 03/22/2024 Utilities Answer Date Recorded Do you have trouble paying f or utilities (for example, heat, electricity, water, phone)? 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 Not on file Not on fi le Not on file Obstetrics History Last Filed Vital Signs Vital Sign Reading Time Taken Comments Blood Pressure 129/74 08/20/2024 3:19 PM FORENSIC INVESTIGATOR Pulse 62 08/20/2024 3:19 PM FORENSIC INVESTIGATOR Temperature 36.6 C (97.8 F) 08/15/2024 8:40 AM FORENSIC INVESTIGATOR Respiratory Rate 16 03/22/2024 10:41 AM CDT Oxygen Saturation 98% 08/20/2024 3:19 PM FORENSIC INVESTIGATOR Inhaled Oxygen Concentration - - Weight 90.7 kg (200 lb) 08/20/2024 3:19 PM FORENSIC INVESTIGATOR Height 167.6 cm (5' 6) 04/29/2024 9:41 AM CDT Body Mass Index 32.28 04/29/2024 9:41 AM CDT Plan of Treatment Upcoming Encounters Date Type Department Care Team (Late st Contact Info) Description 09/09/2024 1:00 PM FORENSIC INVESTIGATOR [facility] [address] [place] [phone] Em Martin MD [address] [place] [address] 11/28/2024 11:00 AM CDT Office Visit [facility] [place] [address] [place] [phone] Edilson Guerrier MD [address] [place] [id number] Scheduled Procedures Name Priority Associated Diagnoses Date/Ti me SURGICAL PROCEDURE (TYPE PRO CEDURE DESCRIPTION BELOW) Anemia, unspecified type Health Maintenance Due Date Last Done Comments Tetanus booster 05/12/2021 05/12/2011 [facility] 04/07/2011 Medicare Wellness for age 65+ 11/15/2023 11/14/2022, 09/20/2020 BMI (ht and wt on same day) for age 18+ 04/29/2025 04/29/2024, 04/09/2024, 03/17/2024, Additional history exists Depression screening for age 12+ 08/22/2025 08/22/2024, 08/21/2024, 08/20/2024, Additional history exists Lipids for age 45-75 08/20/2029 08/20/2024, 11/14/2022, 08/24/2022, Additional history exists Colonoscopy through age 75 11/28/202911/28, 11/28/2022, 11/28/2022, Additional history exists Tdap Completed 04/07/2011 Hepatitis C screening for ag e 18-79 Completed 07/14/2020 Pneumococcal series for age 50+ Completed , 09/17/2017 RSV vaccine for adults or Completed 05/06/2023 COVID-19 vaccine series Completed 08/08/19, 05/06/2023, 07/02/2022, Additional history exists Influenza for age 65+ Completed 08/08/2024 , 05/06/2023, 07/02/2022, Additional history exists Zoster (shingles) series for age 50+ Completed 08/08/2024, 07/16/2020 Procedures Procedure Name Priority Date/Time Associated Diagnosis Comments CBC WITH AUTO DIFFERENTIAL Timed 09/02/2024 8:59 AM FORENSIC INVESTIGATOR Thrombophlebitis FOLIC ACID Today 09/02/2024 8:59 AM FORENSIC INVESTIGATOR Thrombophlebitis VITAMIN B12 Today 09/02/2024 8:59 AM FORENSIC INVESTIGATOR Thrombophlebitis FERRITIN Today 09/02/2024 8:59 AM FORENSIC INVESTIGATOR Thrombophlebitis RETICULOCYTES Today 09/02/2024 8:59 AM FORENSIC INVESTIGATOR Thrombophlebitis CBC WITH AUTO DIFFERENTIAL Today 09/02/2024 8:59 AM FORENSIC INVESTIGATOR Thrombophlebitis IRON PLUS IRON BINDING CAP Today 09/02/2024 8:59 AM FORENSIC INVESTIGATOR Thrombophlebitis SCAN-CT INTERPRETATION 12:00 AM FORENSIC INVESTIGATOR COMP METABOLIC PANEL Routine 08/20/2024 1:41 PM FORENSIC INVESTIGATOR Medication monitoring encounter LIPID PANEL W REFLEX MEASURED LDL Routine 08/20/2024 1:41 PM FORENSIC INVESTIGATOR Other hyperlipidemia HEMOGLOBIN A1C Routine 08/20/2024 1:41 PM FORENSIC INVESTIGATOR Screening for diabetes mellitus (DM) PSA TOTAL Routine 08/20/2024 1:41 PM FORENSIC INVESTIGATOR Prostate cancer screening CBC WITH AUTO DIFFERENTIAL Routine 08/20/2024 1:41 PM FORENSIC INVESTIGATOR Medication monitoring encounter US VENOUS LOWER EXTREMITY RIGHT Routine 08/15/2024 11:36 AM FORENSIC INVESTIGATOR Right leg pain SCAN-OPERATIVE/PROCEDU RE REPORT 06/05/2024 12:00 AM CDT COLONOSCOPY SCREENING Routine 11/28/2022 8:57 AM CDT Screening for colon cancer ANTI HCV Add On 07/14/2020 11:28 AM FORENSIC INVESTIGATOR Need for hepatitis C screening test from Last 3 Months or Most Recently Relevant to Health Maintenance Results * (ABNORMAL) CBC WITH AUTO DIFFERENTIAL (09/02/2024 8:59 AM FORENSIC INVESTIGATOR) WHITE BLOOD COUNT 5.9 4.5 - 11.0 thou/cu mm 09/02/2024 9:07 AM FORENSIC INVESTIGATOR [facility] RED BLOOD COUNT 5.20 4.30 - 5.90 mil/cu mm 09/02/2024 9:07 AM FORENSIC INVESTIGATOR [facility] HEMOGLOBIN 11.7(L) 13.5 - 17.5 g/dL 09/02/2024 9:07 AM [facility] HEMATOCRIT 39.3 37.0 - 53.0 % 09/02/2024 9:07 AM [facility] MCV 76(L) 80 - 100 fL 09/02/2024 9:07 AM [facility] MCH 22.5(L) 26.0 - 34.0 pg 09/02/2024 9:07 AM [facility] MCHC 29.8(L) 32.0 - 36.0 g/dL 09/02/2024 9:07 AM [facility] RDW 17.9(H) 11.5 - 15.5 % 09/02/2024 9:07 AM [facility] PLATELET COUNT 276 140 - 440 thou/cu mm 09/02/2024 9:07 AM [facility] MPV 8.4 6.5 - 11.0 fL 09/02/2024 9:07 AM [facility] % NEUT 71.2 % 09/02/2024 9:07 AM [facility] % LYMPH 18.4 % 09/02/2024 9:07 AM [facility] % MONO 9.9 % 09/02/2024 9:07 AM [facility] % EOS 0.2 % 09/02/2024 9:07 AM [facility] % BASO 0.3 % 09/02/2024 9:07 AM [facility] ABSOLUTE NEUTROPHILS 4.2 1.7 - 7.0 thou/cu mm 09/02/2024 9:07 AM [facility] ABSOLUTE LYMPHOCYTES 1.1 0.9 - 2.9 thou/cu mm 09/02/2024 9:07 AM [facility] ABSOLUTE MONOCYTES 0.6 <0.9 thou/cu mm 09/02/2024 9:07 AM [facility] ABSOLUTE EOSINOPHILS 0.0 <0.5 thou/cu mm 09/02/2024 9:07 AM [facility] ABSOLUTE BASOPHILS 0.0 <0.3 thou/cu mm 09/02/2024 9:07 AM FORENSIC INVESTIGATOR [facility] Blood BLOOD SPECIMEN / Unknown Venipuncture / Unknown 09/02/2024 8:59 AM FORENSIC INVESTIGATOR 09/02/2024 9:00 AM FORENSIC INVESTIGATOR Narrative [facility] - 09/02/2024 9:07 AM FORENSIC INVESTIGATOR This procedure was originally ordered at [facility]. This procedure was originally ordered at [facility]. Em Martin MD HEMATOLOGY Final Resu lt Performing Organization Address City/[facility]/ZIP Co de Phone Number [facility] [address] [place] [address] * (ABNORMAL) IRON PLUS IRON BINDING CAP (09/02/2024 8:59 AM FORENSIC INVESTIGATOR) IRON 41(L) 61 - 157 ug/dL 09/02/2024 11:06 PM FORENSIC INVESTIGATOR [facility] UIBC (UNSATURATED) 281 112 - 347 ug/dL 09/02/2024 11:06 PM FORENSIC INVESTIGATOR [facility] IRON BINDING CAPACITY 322 250 - 400 ug/dL 09/02/2024 11:06 PM FORENSIC INVESTIGATOR [facility] IRON,% SATURATION 13(L) 14 - 50 % 09/02/2024 11:06 PM FORENSIC INVESTIGATOR [facility] Blood BLOOD SPECIMEN / Unknown Venipuncture / Unknown 09/02/2024 8:59 AM FORENSIC INVESTIGATOR 09/02/2024 9:00 AM FORENSIC INVESTIGATOR Em Martin MD CHEMISTRY Final Resu lt [facility] [address] [place] [address], [place] * RETICULOCYTES (09/02/2024 8:59 AM FORENSIC INVESTIGATOR) RETIC% 1.4 0.5 - 1.5 % 09/02/2024 1:31 PM FORENSIC INVESTIGATOR [facility] RETIC (ABSOLUTE) 0.07 0.03 - 0.08 mil/cu mm 09/02/2024 1:31 PM FORENSIC INVESTIGATOR [facility] Blood BLOOD SPECIMEN / Unknown Venipuncture / Unknown 09/02/2024 8:59 AM FORENSIC INVESTIGATOR 09/02/2024 9:00 AM FORENSIC INVESTIGATOR Narrative [facility] - 09/02/2024 1:31 PM FORENSIC INVESTIGATOR This procedure was originally ordered at [facility]. Em Martin MD HEMATOLOGY Final Resu lt Performing Organization Address [facility] Co de Phone Number [facility] [address] [place] [address], [place] * FOLIC ACID (09/02/2024 8:59 AM FORENSIC INVESTIGATOR) FOLIC ACID 19.8 4.6 - 34.8 ng/mL 09/02/2024 11:06 PM FORENSIC INVESTIGATOR [facility] Blood BLOOD SPECIMEN / Unknown Venipuncture / Unknown 09/02/2024 8:59 AM FORENSIC INVESTIGATOR 09/02/2024 9:00 AM FORENSIC INVESTIGATOR Narrative [facility] - 09/02/2024 11:06 PM FORENSIC INVESTIGATOR Biotin supplements may cause clinically significant interference for this test assay. If interference is suspected, it is strongly recommended that biotin is discontinued for at least one week prior to retesting. us Em Martin MD CHEMISTRY Final Resu lt Performing Organization Address City/[facility]/ZIP Co de Phone Number [facility] [address] [place] [address], [place] * (ABNORMAL) FERRITIN (09/02/2024 8:59 AM FORENSIC INVESTIGATOR) FERRITIN 19.5(L) 30.0 - 400.0 ng/mL 09/02/2024 11:06 PM FORENSIC INVESTIGATOR [facility] Blood BLOOD SPECIMEN / Unknown Venipuncture / Unknown 09/02/2024 8:59 AM FORENSIC INVESTIGATOR 09/02/2024 9:00 AM FORENSIC INVESTIGATOR Em Martin MD CHEMISTRY Final Resu lt Performing Organization Address [facility]/ZIP Co de Phone Number [facility] [address] [place] [address], * VITAMIN B12 (09/02/2024 8:59 AM FORENSIC INVESTIGATOR) VITAMIN B12 456 232 - 1,245 pg/mL 09/02/2024 11:06 PM FORENSIC INVESTIGATOR [facility] Blood BLOOD SPECIMEN / Unknown Venipuncture / Unknown 09/02/2024 8:59 AM FORENSIC INVESTIGATOR 09/02/2024 9:00 AM FORENSIC INVESTIGATOR Narrative [facility] - 09/02/2024 11:06 PM FORENSIC INVESTIGATOR Biotin supplements may cause clinically significant interference for this test assay. If interference is suspected, it is strongly recommended that biotin is discontinued for at least one week prior to retesting. Em Martin MD CHEMISTRY Final Resu lt Performing Organization Address [facility] Co de Phone Number [facility] [address] [place] [id number], * SCAN-CT INTERPRETATION (09/02/2024 12:00 AM FORENSIC INVESTIGATOR) Anatomical Region Laterality Modality Other us Scanner OTHER Final Result * (ABNORMAL) HEMOGLOBIN A1C (08/20/2024 1:41 PM FORENSIC INVESTIGATOR) HEMOGLOBIN A1C 6.2(H) <5.7 % of total Hgb [facility] Comment: For someone without known diabetes, a hemoglobin A1c value between 5.7% and 6.4% is consistent with prediabetes and should be confirmed with a follow-up test. For someone with known diabetes, a value <7% indicates that their diabetes is well controlled. A1c targets should be individualized based on duration of diabetes, age, comorbid conditions, and other considerations. This assay result is consistent with an increased risk of diabetes. Currently, no consensus exists regarding use of hemoglobin A1c for diagnosis of diabetes for children. Blood BLOOD SPECIMEN / Unknown 08/20/2024 1:41 PM FORENSIC INVESTIGATOR 08/20/2024 1:41 PM FORENSIC INVESTIGATOR Mayo Johnson MD CHEMISTRY Final Resu lt Performing Organization Address City/[facility]/ZIP Co de Phone Number [facility] [address] [place] [address], [place] [phone] [facility] [address] [place] [address] * (ABNORMAL) LIPID PANEL W REFLEX MEASURED LDL (08/20/2024 1:41 PM FORENSIC INVESTIGATOR) CHOLESTEROL, TOTAL 154 <200 mg/dL [facility] HDL CHOLESTEROL 46 > OR = 40 mg/dL [facility] TRIGLYCERIDES 150(H) <150 mg/dL [facility] LDL-CHOLESTEROL 83 mg/dL (calc) [facility] Comment: Reference range: <100 Desirable range <100 mg/dL for primary prevention; <70 mg/dL for patients with CHD or diabetic patients with > or = 2 CHD risk factors. LDL-C is now calculated using the Raymond-Gracie calculation, which is a validated novel method providing better accuracy than the Friedewald equation in the estimation of LDL-C. Raymond SS et al. PALOMO. 2013;310(19): 7046-6299 (http://education.SvitStyle/faq/SDQ377) CHOL/HDLC RATIO 3.3 <5.0 (calc) [facility] NON HDL CHOLESTEROL 108 <130 mg/dL (calc) [facility] Comment: For patients with diabetes plus 1 major ASCVD risk factor, treating to a non-HDL-C goal of <100 mg/dL (LDL-C of <70 mg/dL) is considered a therapeutic option. Blood BLOOD SPECIMEN / Unknown 08/20/2024 1:41 PM FORENSIC INVESTIGATOR 08/20/2024 1:41 PM FORENSIC INVESTIGATOR Mayo Johnson MD CHEMISTRY Final Resu lt Performing Organization Address City/[facility]/ZIP Co de Phone Number [facility] [address] [place] [address], [facility] [address] [place] [address] * (ABNORMAL) CBC AND DIFFERENTIAL (08/20/2024 1:41 PM FORENSIC INVESTIGATOR) [facility] WHITE BLOOD CELL COUNT 5.0 3.8 - 10.8 Thousand/u L [facility] RED BLOOD CELL COUNT 5.25 4.20 - 5.80 Million/uL [facility] HEMOGLOBIN 11.5(L) 13.2 - 17.1 g/dL [facility] HEMATOCRIT 40.1 38.5 - 50.0 % [facility] MCV 76.4(L) 80.0 - 100.0 fL [facility] MCH 21.9(L) 27.0 - 33.0 pg [facility] MCHC 28.7(L) 32.0 - 36.0 g/dL [facility] Comment: For adults, a slight decrease in the calculated MCHC value (in the range of 30 to 32 g/dL) is most likely not clinically significant; however, it should be interpreted with caution in correlation with other red cell parameters and the patient's clinical condition. RDW 15.9(H) 11.0 - 15.0 % [facility] PLATELET COUNT 361 140 - 400 Thousand/u L [facility] MPV 9.9 7.5 - 12.5 fL [facility] ABSOLUTE NEUTROPHILS 2,935 1,500 - 7,800 cells/uL [facility] ABSOLUTE LYMPHOCYTES 1,495 850 - 3,900 cells/uL [facility] ABSOLUTE MONOCYTES 480 200 - 950 cells/uL [facility] ABSOLUTE EOSINOPHILS 30 15 - 500 cells/uL [facility] ABSOLUTE BASOPHILS 60 0 - 200 cells/uL [facility] NEUTROPHILS 58.7 % [facility] LYMPHOCYTES 29.9 % [facility] MONOCYTES 9.6 % [facility] EOSINOPHILS 0.6 % [facility] BASOPHILS 1.2 % [facility] Blood BLOOD SPECIMEN / Unknown 08/20/2024 1:41 PM FORENSIC INVESTIGATOR 08/20/2024 1:41 PM FORENSIC INVESTIGATOR Mayo Johnson MD HEMATOLOGY Final Resu lt Performing Organization Address [facility]/ZIP Co de Phone Number [facility] [address] [place] [address], [place] [phone] [facility] [address] [place] [address] * PSA TOTAL (08/20/2024 1:41 PM FORENSIC INVESTIGATOR) Pathologist [facility] PSA, TOTAL 2.56 < OR = 4.00 ng/mL [facility] Comment: The total PSA value from this assay system is standardized against the WHO standard. The test result will be approximately 20% lower when compared to the equimolar-standardized total PSA (Onur Tray). Comparison of serial PSA results should be interpreted with this fact in mind. This test was performed using the Siemens chemiluminescent method. Values obtained from different assay methods cannot be used interchangeably. PSA levels, regardless of value, should not be interpreted as absolute evidence of the presence or absence of disease. Blood BLOOD SPECIMEN / Unknown 08/20/2024 1:41 PM FORENSIC INVESTIGATOR 08/20/2024 1:41 PM FORENSIC INVESTIGATOR Mayo Johnson MD CHEMISTRY Final Resu lt Performing Organization Address [facility]/ZIP Co de Phone Number [facility] [address] [place] [address], [place] [phone] [facility] [address] [place] [address] * COMP METABOLIC PANEL (08/20/2024 1:41 PM FORENSIC INVESTIGATOR) GLUCOSE 90 65 - 99 mg/dL [facility] Comment: Fasting reference interval UREA NITROGEN (BUN) 20 7 - 25 mg/dL [facility] CREATININE 1.08 0.70 - 1.28 mg/dL [facility] EGFR 73 > OR = 60 mL/min/1. 73m2 [facility] BUN/CREATININE RATIO SEE NOTE: 6 - 22 (calc) [facility] Comment: Not Reported: BUN and Creatinine are within reference range. SODIUM 137 135 - 146 mmol/L [facility] POTASSIUM 4.2 3.5 - 5.3 mmol/L [facility] CHLORIDE 102 98 - 110 mmol/L [facility] CARBON DIOXIDE 29 20 - 32 mmol/L [facility] CALCIUM 9.2 8.6 - 10.3 mg/dL [facility] PROTEIN, TOTAL 7.4 6.1 - 8.1 g/dL [facility] ALBUMIN 4.3 3.6 - 5.1 g/dL [facility] GLOBULIN 3.1 1.9 - 3.7 g/dL (calc) [facility] ALBUMIN/GLOBULIN RATIO 1.4 1.0 - 2.5 (calc) [facility] BILIRUBIN, TOTAL 0.4 0.2 - 1.2 mg/dL [facility] ALKALINE PHOSPHATASE 76 35 - 144 U/L [facility] AST 18 10 - 35 U/L [facility] ALT 16 9 - 46 U/L [facility] Blood BLOOD SPECIMEN / Unknown 08/20/2024 1:41 PM FORENSIC INVESTIGATOR 08/20/2024 1:41 PM FORENSIC INVESTIGATOR us Mayo Johnson MD CHEMISTRY Final Resu lt [facility] [address] [place] [address], [place] [phone] [email or web address] [address] [place] [address] * US VENOUS LOWER EXTREMITY RIGHT (08/15/2024 11:36 AM FORENSIC INVESTIGATOR) Anatomical Region Laterality Modality LEGS, LEG R, Abdomen Ultrasound 08/15/2024 2:33 PM FORENSIC INVESTIGATOR Impressions 08/15/2024 2:33 PM FORENSIC INVESTIGATOR No evidence of deep vein thrombosis within the right lower extremity. Long segment superficial thrombus within the right thigh greater saphenous vein. Dictated by Remberto Francisco MD @ 08/15/2024 2:33:21 PM (Electronically Signed) Narrative 08/15/2024 2:33 PM FORENSIC INVESTIGATOR For Patients: As a result of the Cures Act, medical imaging exams and procedure reports are released immediately into your electronic medical record. You may view this report before your referring provider. If you have questions, please contact your health care provider. INDICATION: Right leg pain COMPARISON: None. TECHNIQUE: A compression venous ultrasound exam was performed of the right lower extremity using philippe-scale imaging, color Doppler and spectral Doppler analysis. FINDINGS: Sonographic imaging of the right lower extremity demonstrates normal compressibility and color Doppler venous blood flow within the common femoral vein and deep femoral vein. Within the thigh, the femoral vein is patent and compressible. At a lower level, the popliteal and posterior tibial veins also show normal compressibility and color Doppler venous blood flow. Long segment hypoechoic noncompressible clot is present within the right greater saphenous vein extending from the knee through the thigh and is located 1.4 cm from the saphenofemoral junction. Limited imaging of the contralateral groin demonstrates a normal spectral waveform and color Doppler venous blood flow within the left common femoral vein. Procedure Note Remberto Francisco MD - 08/15/2024 For Patients: As a result of the Cures Act, medical imagingexams and procedure reports are released immediately into your electronicmedical record. You may view this report before your referring provider.If you have questions, please contact your health care provider. INDICATION: Right leg pain COMPARISON: None. TECHNIQUE: A compression venous ultrasound exam was performed of the right lowerextremity using philippe-scale imaging, color Doppler and spectral Doppleranalysis. FINDINGS: Sonographic imaging of the right lower extremity demonstrates normalcompressibility and color Doppler venous blood flow within the commonfemoral vein and deep femoral vein. Within the thigh, the femoral vein ispatent and compressible. At a lower level, the popliteal and posteriortibial veins also show normal compressibility and color Doppler venousblood flow. Long segment hypoechoic noncompressible clot is present withinthe right greater saphenous vein extending from the knee through the thighand is located 1.4 cm from the saphenofemoral junction. Limited imaging of the contralateral groin demonstrates a normal spectralwaveform and color Doppler venous blood flow within the left commonfemoral vein. IMPRESSION: No evidence of deep vein thrombosis within the right lower extremity. Long segment superficial thrombus within the right thigh greater saphenousvein. Dictated by Remberto Francisco MD @ 08/15/2024 2:33:21 PM (Electronically Signed) us Gabriela MEDELLIN US Final Result * SCAN-OPERATIVE/PROCEDURE REPORT (06/05/2024 12:00 AM CDT) us Scanner OTHER Final Result * COLONOSCOPY (11/28/2022 9:00 AM CDT) 11/28/2022 9:00 AM CDT Narrative Transcriptions Raymond Lake MD - 11/28/2022 9:55 AM CDT Patient Name: Will Rosales Procedure Date: 11/28/2022 Gender: Male Date of : 1950 Admit Type: Outpatient Procedure: Colonoscopy Proceduralist: Raymond Lake MD , Elizabeth Walton (Nurse) Referring MD: Jose Vasquez Indications/Pre-Op Diagnosis: Screening for colorectal malignant neoplasm, Last colonoscopy: October 2012 Medications: Fentanyl 100 micrograms IV, Midazolam 2 mgIV, The level of sedation administered wasmoderate Procedure Description: The patient had risks, benefits and alternatives explained to andgave informed consent. The patient had a stable cardiopulmonary status and judged an adequate candidate for conscious sedation. The endoscope PCF-H190L [id number] was passed through the anus andadvanced to the cecum, identified by appendiceal orifice and ileocecal valve.The colonoscopy was performed without difficulty. The patient toleratedthe procedure well. The quality of the bowel preparation was good. The ileocecal valve, appendiceal orifice, and rectum were photographed. Complications: No immediate complications. Estimated Blood Loss & Specimen: Estimated blood loss: none. Specimen collected - Yes and sent to Laboratory Findings: The perianal and digital rectal examinations were normal. A 3 mm polyp was found in the transverse colon. The polyp wassessile. The polyp was removed with a cold biopsy forceps. Resection and retrieval were complete. The exam was otherwise without abnormality. Impressions/Post-Op Diagnosis: - One 3 mm polyp in the transverse colon, removed with a cold biopsy forceps. Resected and retrieved. - The examination was otherwise normal. Recommendation: - Patient has a contact number available for emergencies. The signsand symptoms of potential delayed complications were discussed with the patient. Return to normal activities tomorrow. Written discharge instructions were provided to the patient. - Resume previous diet. - Continue present medications. - Await pathology results. - Repeat colonoscopy is recommended. The colonoscopy date will be determined after pathology results from today's exam become available for review. Moderate Sedation: A time out was performed before the procedure. Moderate (conscious) sedation was administered by the endoscopy nurse and supervised bythe endoscopist. The following parameters were monitored: oxygensaturation, heart rate, blood pressure, EKG, CO2, respiratory rate, adequacy of pulmonary ventilation and reponse to care. Please refer to the patient's medical record flowsheets and nursing notes for moderate sedation details. Total physician intraservice time was 17 minutes. Raymond Lake MD 11/28/2022 9:54:54 AM This report has been signed electronically. Note Initiated On: 11/28/2022 9:00 AM Procedure Code(s): --- Professional --- 11368, Colonoscopy, flexible; with biopsy, single or multiple Diagnosis Code(s): --- Professional --- Z12.11, Encounter for screening formalignant neoplasm of colon D12.3, Benign neoplasm of transverse colon (hepatic flexure or splenic flexure) CPT copyright 2021 [employer]. All rights reserved. The codes documented in this report are preliminary and upon media specialist reviewmay be revised to meet current compliance requirements. Scope In: 9:23:58 AM Scope Withdrawal Time 0 hours 10 minutes 49 seconds Scope Out: 9:38:37 AM us Raymond Lake MD PROCEDURE ORD Final Res ult * ANTI HCV (07/14/2020 11:28 AM FORENSIC INVESTIGATOR) HEPATITIS C ANTIBODY Non-React carlos Non-React carlos 07/16/2020 12:08 PM FORENSIC INVESTIGATOR [facility] Comment:Antibodies to HCV no t detected; does not exclude the possibility of exposure to HCV. Blood BLOOD SPECIMEN / Unknown Venipuncture / Unknown 07/14/2020 11:28 AM FORENSIC INVESTIGATOR 07/14/2020 11:28 AM FORENSIC INVESTIGATOR us Mayo Johnson MD SEND OUTS Final Resu lt [facility] [address] [place] [address], from Last 3 Months or Most Recently Relevant to Health Maintenance Insurance [employer] MEDIC[employer] PART B HB ONLY [place] BLUE HB ONLY [place] BLUE MR PB ONLY MR BC [place] Care Teams Clinical Provider Trainer Relationship Specialty Start Date End Date Mayo Johnson MD [address] [place] [address] PCP - General 06/07/06
[2024-09-03 13:45] VITALS: BP 120/81; PULSE 66; RESP 20; TEMP 37.2; O2SAT 97; BMI 30.3
--- OUTSIDE RECORDS SUMMARY | 2024-09-03 14:07 | XMS_ITS | Clinical Summary ---
Author Organization [employer] Address [place], [place] [address] Care Team Providers Care Motorbike Courier Name Role Phone Mayo Johnson MD Primary Care Provider [phone]- [phone] Allergies No known active allergies Medications budesonide-formote [...] Department Care Team Description 09/02/2024 8:55 AM DRILL PRESS SET UP OPERATOR - 09/02/2024 11:59 PM DRILL PRESS SET UP OPERATOR Hospital Encounter [facility] [address] [facility] [place] [address] Thrombophlebitis 09/02/[address] [facility] Scanner 1 scan: (1-Ord) [facility], HEAD/BRAIN W/O CONTRAST, 09/02/2024 09/02/2024 Nurse Triage [facility] [address] [place] [address] Gabriela Carbone PA Confusion 09/02/2024 Travel 09/01/2024 Telephone [facility] [address] [place] [address] Raymond Lake MD Chart Review 08/31/2024 Telephone [facility] [address] [place] [address] Mayo Johnson MD Abnormal Lab Results 08/22/2024 Orders Only [facility] [address] [facility] [address] Em Martin MD <No scans attached> 08/21/2024 Telephone [facility] [address] [place] [address] Denise Deshpande, TREY Appointment 08/20/2024 3:15 PM DRILL PRESS SET UP OPERATOR Office Visit [facility] [address] [place] [address] Mayo Johnson MD Follow Up (Right leg bumpy spot and discuss low iron) 08/20/2024 1:45 PM DRILL PRESS SET UP OPERATOR Orders Only [facility] [address] [place] [place] [address] Lab, [facility] 08/20/2024 Travel 08/18/2024 Telephone [facility] [address] [place] [address] Gabriela Carbone PA Prior Authorization (ELIQUIS 5 mg tablet APPROVED (08/15/2024-08/05/2025)) 08/18/2024 Telephone [facility] [address] [place] [address] Mayo Johnson MD Questions (Lab) 08/15/2024 11:15 AM DRILL PRESS SET UP OPERATOR Ancillary Procedure [facility] [address] [place] [address] 08/15/2024 8:35 AM DRILL PRESS SET UP OPERATOR Office Visit [facility] [address] [place] [address] Gabriela Carbone PA Leg Pain/problem 08/15/2024 Travel 08/02/2024 Refill [facility] [address] [place] [address] Jose Vasquez, DO Refill Request (Simvastatin) 07/29/2024 Telephone [facility] [place] [address] [facility] [address] [place] [phone] Edilson Guerrier MD Follow Up 07/29/2024 Refill [facility] [address] [place] [address] Jose Vasquez, DO Refill Request (Simvastatin) 06/06/2024 Refill [facility] [address] [place] [address] Jose Vasquez, DO Refill Request (Tamsulosin) 06/05/[address] 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 Not on file Not on fi le Not on file Obstetrics History Last Filed Vital Signs Vital Sign Reading Time Taken Comments Blood Pressure 129/74 08/20/2024 3:19 PM DRILL PRESS SET UP OPERATOR Pulse 62 08/20/2024 3:19 PM DRILL PRESS SET UP OPERATOR Temperature 36.6 C (97.8 F) 08/15/2024 8:40 AM DRILL PRESS SET UP OPERATOR Respiratory Rate 16 03/22/2024 10:41 AM CDT Oxygen Saturation 98% 08/20/2024 3:19 PM DRILL PRESS SET UP OPERATOR Inhaled Oxygen Concentration - - Weight 90.7 kg (200 lb) 08/20/2024 3:19 PM DRILL PRESS SET UP OPERATOR Height 167.6 cm (5' 6) 04/29/2024 9:41 AM CDT Body Mass Index 32.28 04/29/2024 9:41 AM CDT Plan of Treatment Upcoming Encounters Date Type Department Care Team (Late st Contact Info) Description 09/09/2024 1:00 PM DRILL PRESS SET UP OPERATOR Office Visit [facility] [address] [place] [phone] Em Martin MD [address] [place] [address] 11/28/2024 11:00 AM CDT Office Visit [facility] [place] [address] [place] [address] Edilson Guerrier MD [address] [place] [id number] Scheduled Procedures Name Priority Associated Diagnoses Date/Ti me SURGICAL PROCEDURE (TYPE PRO CEDURE DESCRIPTION BELOW) Anemia, unspecified type Health Maintenance Due Date Last Done Comments Tetanus booster 05/12/2021 05/12/2011 [facility] 04/07/2011 Medicare Wellness for age 65+ 11/15/2023 [...] WITH AUTO DIFFERENTIAL Timed 09/02/2024 8:59 AM DRILL PRESS SET UP OPERATOR Thrombophlebitis FOLIC ACID Today 09/02/2024 8:59 AM DRILL PRESS SET UP OPERATOR Thrombophlebitis VITAMIN B12 Today 09/02/2024 8:59 AM DRILL PRESS SET UP OPERATOR Thrombophlebitis FERRITIN Today 09/02/2024 8:59 AM DRILL PRESS SET UP OPERATOR Thrombophlebitis RETICULOCYTES Today 09/02/2024 8:59 AM DRILL PRESS SET UP OPERATOR Thrombophlebitis CBC WITH AUTO DIFFERENTIAL Today 09/02/2024 8:59 AM DRILL PRESS SET UP OPERATOR Thrombophlebitis IRON PLUS IRON BINDING CAP Today 09/02/2024 8:59 AM DRILL PRESS SET UP OPERATOR Thrombophlebitis SCAN-CT INTERPRETATION 12:00 AM DRILL PRESS SET UP OPERATOR COMP METABOLIC PANEL Routine 08/20/2024 1:41 PM DRILL PRESS SET UP OPERATOR Medication monitoring encounter LIPID PANEL W REFLEX MEASURED LDL Routine 08/20/2024 1:41 PM DRILL PRESS SET UP OPERATOR Other hyperlipidemia HEMOGLOBIN A1C Routine 08/20/2024 1:41 PM DRILL PRESS SET UP OPERATOR Screening for diabetes mellitus (DM) PSA TOTAL Routine 08/20/2024 1:41 PM DRILL PRESS SET UP OPERATOR Prostate cancer screening CBC WITH AUTO DIFFERENTIAL Routine 08/20/2024 1:41 PM DRILL PRESS SET UP OPERATOR Medication monitoring encounter US VENOUS LOWER EXTREMITY RIGHT Routine 08/15/2024 11:36 AM DRILL PRESS SET UP OPERATOR Right leg pain SCAN-OPERATIVE/PROCEDU RE REPORT 06/05/2024 12:00 AM CDT COLONOSCOPY SCREENING Routine 11/28/2022 8:57 AM CDT Screening for colon cancer ANTI HCV Add On 07/14/2020 11:28 AM DRILL PRESS SET UP OPERATOR Need for hepatitis C screening test from Last 3 Months or Most Recently Relevant to Health Maintenance Results * (ABNORMAL) CBC WITH AUTO DIFFERENTIAL (09/02/2024 8:59 AM DRILL PRESS SET UP OPERATOR) WHITE BLOOD COUNT 5.9 4.5 - 11.0 thou/cu mm 09/02/2024 9:07 AM DRILL PRESS SET UP OPERATOR [facility] RED BLOOD COUNT 5.20 4.30 - 5.90 mil/cu mm 09/02/2024 9:07 AM DRILL PRESS SET UP OPERATOR [facility] HEMOGLOBIN 11.7(L) 13.5 - 17.5 g/dL 09/02/2024 9:07 AM [facility] HEMATOCRIT 39.3 37.0 - 53.0 % 09/02/2024 9:07 AM [facility] MCV 76(L) 80 - 100 fL 09/02/2024 9:07 AM [facility] MCH 22.5(L) 26.0 - 34.0 pg 09/02/2024 9:07 AM [facility] MCHC 29.8(L) 32.0 - 36.0 g/dL 09/02/2024 9:07 AM [facility] RDW 17.9(H) 11.5 - 15.5 % 09/02/2024 9:07 AM [facility] PLATELET COUNT 276 140 - 440 thou/cu mm 09/02/2024 9:07 AM [facility] MPV 8.4 6.5 - 11.0 fL 09/02/2024 9:07 AM [facility] % NEUT 71.2 % 09/02/2024 9:07 AM [facility] % LYMPH 18.4 % 09/02/2024 9:07 AM [facility] % MONO 9.9 % 09/02/2024 9:07 AM [facility] % EOS 0.2 % 09/02/2024 9:07 AM [facility] % BASO 0.3 % 09/02/2024 9:07 AM [facility] ABSOLUTE NEUTROPHILS 4.2 1.7 - 7.0 thou/cu mm 09/02/2024 9:07 AM [facility] ABSOLUTE LYMPHOCYTES 1.1 0.9 - 2.9 thou/cu mm 09/02/2024 9:07 AM [facility] ABSOLUTE MONOCYTES 0.6 <0.9 thou/cu mm 09/02/2024 9:07 AM [facility] ABSOLUTE EOSINOPHILS 0.0 <0.5 thou/cu mm 09/02/2024 9:07 AM [facility] ABSOLUTE BASOPHILS 0.0 <0.3 thou/cu mm 09/02/2024 9:07 AM DRILL PRESS SET UP OPERATOR [facility] Blood BLOOD SPECIMEN / Unknown Venipuncture / Unknown 09/02/2024 8:59 AM DRILL PRESS SET UP OPERATOR 09/02/2024 9:00 AM DRILL PRESS SET UP OPERATOR Narrative [facility] - 09/02/2024 9:07 AM DRILL PRESS SET UP OPERATOR This procedure was originally ordered at [facility]. This procedure was originally ordered at [facility]. Em Martin MD HEMATOLOGY Final Resu lt Performing Organization Address City/[facility]/ZIP Co de Phone Number [facility] [address] [place] [address] * (ABNORMAL) IRON PLUS IRON BINDING CAP (09/02/2024 8:59 AM DRILL PRESS SET UP OPERATOR) IRON 41(L) 61 - 157 ug/dL 09/02/2024 11:06 PM DRILL PRESS SET UP OPERATOR [facility] UIBC (UNSATURATED) 281 112 - 347 ug/dL 09/02/2024 11:06 PM DRILL PRESS SET UP OPERATOR [facility] IRON BINDING CAPACITY 322 250 - 400 ug/dL 09/02/2024 11:06 PM DRILL PRESS SET UP OPERATOR [facility] IRON,% SATURATION 13(L) 14 - 50 % 09/02/2024 11:06 PM DRILL PRESS SET UP OPERATOR [facility] Blood BLOOD SPECIMEN / Unknown Venipuncture / Unknown 09/02/2024 8:59 AM DRILL PRESS SET UP OPERATOR 09/02/2024 9:00 AM DRILL PRESS SET UP OPERATOR Em Martin MD CHEMISTRY Final Resu lt [facility] [address] [place] [address], [place] * RETICULOCYTES (09/02/2024 8:59 AM DRILL PRESS SET UP OPERATOR) RETIC% 1.4 0.5 - 1.5 % 09/02/2024 1:31 PM DRILL PRESS SET UP OPERATOR [facility] RETIC (ABSOLUTE) 0.07 0.03 - 0.08 mil/cu mm 09/02/2024 1:31 PM DRILL PRESS SET UP OPERATOR [facility] Blood BLOOD SPECIMEN / Unknown Venipuncture / Unknown 09/02/2024 8:59 AM DRILL PRESS SET UP OPERATOR 09/02/2024 9:00 AM DRILL PRESS SET UP OPERATOR Narrative [facility] - 09/02/2024 1:31 PM DRILL PRESS SET UP OPERATOR This procedure was originally ordered at [facility]. Em Martin MD HEMATOLOGY Final Resu lt Performing Organization Address [facility] Co de Phone Number [facility] [address] [place] [address], [place] * FOLIC ACID (09/02/2024 8:59 AM DRILL PRESS SET UP OPERATOR) FOLIC ACID 19.8 4.6 - 34.8 ng/mL 09/02/2024 11:06 PM DRILL PRESS SET UP OPERATOR [facility] Blood BLOOD SPECIMEN / Unknown Venipuncture / Unknown 09/02/2024 8:59 AM DRILL PRESS SET UP OPERATOR 09/02/2024 9:00 AM DRILL PRESS SET UP OPERATOR Narrative [facility] - 09/02/2024 11:06 PM DRILL PRESS SET UP OPERATOR Biotin supplements may cause clinically significant interference for this test assay. If interference is suspected, it is strongly recommended that biotin is discontinued for at least one week prior to retesting. us Em Martin MD CHEMISTRY Final Resu lt Performing Organization Address City/[facility]/ZIP Co de Phone Number [facility] [address] [place] [address], [place] * (ABNORMAL) FERRITIN (09/02/2024 8:59 AM DRILL PRESS SET UP OPERATOR) FERRITIN 19.5(L) 30.0 - 400.0 ng/mL 09/02/2024 11:06 PM DRILL PRESS SET UP OPERATOR [facility] Blood BLOOD SPECIMEN / Unknown Venipuncture / Unknown 09/02/2024 8:59 AM DRILL PRESS SET UP OPERATOR 09/02/2024 9:00 AM DRILL PRESS SET UP OPERATOR Em Martin MD CHEMISTRY Final Resu lt Performing Organization Address [facility]/ZIP Co de Phone Number [facility] [address] [place] [address], * VITAMIN B12 (09/02/2024 8:59 AM DRILL PRESS SET UP OPERATOR) VITAMIN B12 456 232 - 1,245 pg/mL 09/02/2024 11:06 PM DRILL PRESS SET UP OPERATOR [facility] Blood BLOOD SPECIMEN / Unknown Venipuncture / Unknown 09/02/2024 8:59 AM DRILL PRESS SET UP OPERATOR 09/02/2024 9:00 AM DRILL PRESS SET UP OPERATOR Narrative [facility] - 09/02/2024 11:06 PM DRILL PRESS SET UP OPERATOR Biotin supplements may cause clinically significant interference for this test assay. If interference is suspected, it is strongly recommended that biotin is discontinued for at least one week prior to retesting. Em Martin MD CHEMISTRY Final Resu lt Performing Organization Address [facility] Co de Phone Number [facility] [address] [place] [address], * SCAN-CT INTERPRETATION (09/02/2024 12:00 AM DRILL PRESS SET UP OPERATOR) Anatomical Region Laterality Modality Other us Scanner OTHER Final Result * (ABNORMAL) HEMOGLOBIN A1C (08/20/2024 1:41 PM DRILL PRESS SET UP OPERATOR) HEMOGLOBIN A1C 6.2(H) <5.7 % of total [...] BLOOD SPECIMEN / Unknown 08/20/2024 1:41 PM DRILL PRESS SET UP OPERATOR 08/20/2024 1:41 PM DRILL PRESS SET UP OPERATOR Mayo Johnson MD CHEMISTRY Final Resu lt Performing Organization Address City/[facility]/ZIP Co de Phone Number [facility] [employer] [facility] [address] [place] [address], [place] [phone] [facility] [address] [place] [address] * (ABNORMAL) LIPID PANEL W REFLEX MEASURED LDL (08/20/2024 1:41 PM DRILL PRESS SET UP OPERATOR) CHOLESTEROL, TOTAL 154 <200 mg/dL [facility] [...] LDL-C. Raymond SS et al. PALOMO. 2013;310(19): 7518-6778 (http://education.Vobi/faq/UID940) CHOL/HDLC RATIO 3.3 <5.0 (calc) [facility] NON HDL CHOLESTEROL 108 <130 mg/dL (calc) [facility] Comment: For patients with diabetes plus 1 major ASCVD risk factor, treating to a non-HDL-C goal of <100 mg/dL (LDL-C of <70 mg/dL) is considered a therapeutic option. Blood BLOOD SPECIMEN / Unknown 08/20/2024 1:41 PM DRILL PRESS SET UP OPERATOR 08/20/2024 1:41 PM DRILL PRESS SET UP OPERATOR Mayo Johnson MD CHEMISTRY Final Resu lt Performing Organization Address City/[facility]/ZIP Co de Phone Number [employer] [facility] [address] [place] [address], [facility] [address] [place] [address] * (ABNORMAL) CBC AND DIFFERENTIAL (08/20/2024 1:41 PM DRILL PRESS SET UP OPERATOR) [facility] WHITE BLOOD CELL COUNT 5.0 3.8 - [...] BLOOD SPECIMEN / Unknown 08/20/2024 1:41 PM DRILL PRESS SET UP OPERATOR 08/20/2024 1:41 PM DRILL PRESS SET UP OPERATOR Mayo Johnson MD HEMATOLOGY Final Resu lt Performing Organization Address [facility]/ZIP Co de Phone Number [facility] [address] [place] [address], [place] [phone] [facility] [address] [place] [address] * PSA TOTAL (08/20/2024 1:41 PM DRILL PRESS SET UP OPERATOR) Pathologist [facility] PSA, TOTAL 2.56 < OR = 4.00 ng/mL [facility] Comment: The total PSA [...] BLOOD SPECIMEN / Unknown 08/20/2024 1:41 PM DRILL PRESS SET UP OPERATOR 08/20/2024 1:41 PM DRILL PRESS SET UP OPERATOR Mayo Johnson MD CHEMISTRY Final Resu lt Performing Organization Address [facility]/ZIP Co de Phone Number [facility] [address] [facility] [place] [address], [place] [phone] [facility] [address] [place] [address] * COMP METABOLIC PANEL (08/20/2024 1:41 PM DRILL PRESS SET UP OPERATOR) GLUCOSE 90 65 - 99 mg/dL [facility] [...] BLOOD SPECIMEN / Unknown 08/20/2024 1:41 PM DRILL PRESS SET UP OPERATOR 08/20/2024 1:41 PM DRILL PRESS SET UP OPERATOR us Mayo Johnson MD CHEMISTRY Final Resu lt [employer] [facility] [address] [place] [address], [place] [phone] [facility] [address] [place] [address] * US VENOUS LOWER EXTREMITY RIGHT (08/15/2024 11:36 AM DRILL PRESS SET UP OPERATOR) Anatomical Region Laterality Modality LEGS, LEG R, Abdomen Ultrasound 08/15/2024 2:33 PM DRILL PRESS SET UP OPERATOR Impressions 08/15/2024 2:33 PM DRILL PRESS SET UP OPERATOR No evidence of deep vein thrombosis within the right lower extremity. Long segment superficial thrombus within the right thigh greater saphenous vein. Dictated by Remberto Francisco MD @ 08/15/2024 2:33:21 PM (Electronically Signed) Narrative 08/15/2024 2:33 PM DRILL PRESS SET UP OPERATOR For Patients: As a result of the [...] candidate for conscious sedation. The endoscope [id number] was passed through the anus andadvanced to [...] 9:00 AM Procedure Code(s): --- Professional --- 69041, Colonoscopy, flexible; with biopsy, single or multiple Diagnosis Code(s): --- Professional --- Z12.11, Encounter for screening formalignant neoplasm of colon D12.3, Benign neoplasm of transverse colon (hepatic flexure or splenic flexure) CPT copyright 2021 [employer]. All rights reserved. The codes documented in this report are preliminary and upon requirements engineer reviewmay be revised to meet current compliance requirements. Scope In: 9:23:58 AM Scope Withdrawal Time 0 hours 10 minutes 49 seconds Scope Out: 9:38:37 AM us Raymond Lake MD PROCEDURE ORD Final Res ult * ANTI HCV (07/14/2020 11:28 AM DRILL PRESS SET UP OPERATOR) HEPATITIS C ANTIBODY Non-React carlos Non-React carlos 07/16/2020 12:08 PM DRILL PRESS SET UP OPERATOR [facility] [employer] [facility] Comment:Antibodies to HCV no t detected; does not exclude the possibility of exposure to HCV. Blood BLOOD SPECIMEN / Unknown Venipuncture / Unknown 07/14/2020 11:28 AM DRILL PRESS SET UP OPERATOR 07/14/2020 11:28 AM DRILL PRESS SET UP OPERATOR us Mayo Johnson MD SEND OUTS Final Resu lt [facility] [address] [place] [address], from Last 3 Months or Most Recently Relevant to Health Maintenance Insurance [facility] MEDICARE PART B HB ONLY [place] BLUE HB ONLY BL[place] BLUE MR PB ONLY MR BC [place] Care Teams Motorbike Courier Relationship Specialty Start Date End Date Mayo Johnson MD [address] [place] [address] PCP - General 06/07/06
[2024-09-03 15:00] VITALS: PULSE 66; RESP 20
--- NOTE | 2024-09-03 17:41 | PM.IMHP1 ---
Hospitalist- H&P: HPI History of Present Illness Date Seen: 09/03/24 Chief complaint: Had a cold now exhausted all time, confusion Narrative: Will Rosales is a 74 year old man presented to [facility] with a 2-3 day history of increasing somnolence, weakness, confusion, decreased oral intake, mild to moderate headache, low-grade fever with T-max of 100.6? F. these symptoms were preceded by patient having URI symptoms 1 week prior which subsequently resolved. URI symptoms resolved on Sunday but then his current symptoms started on Sunday. 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 Had sudden onset of decreased level of consciousness. Ultimately it was presumed that patient may have had a viral encephalitis based on the extensive assessments and interventions undertaken at that time. Patient and are concerned that he is having a similar presentation at this time. Earlier this year patient developed a superficial thrombophlebitis of his leg on the right found to have a long segment superficial thrombus within the right thigh greater saphenous vein close to deep vein. Was started on rivaroxaban at that time. Given that he is anticoagulated the decision was made that patient cannot have a lumbar puncture in till sufficient time has elapsed so that it is safe to do a lumbar puncture. Discussions undertaken with neurologist in multiple tertiary hospitals in [place]. All agree patient would do well to be transferred however there is very little bed availability. Only system that would allow us to put him on waiting list was the [facility] system. Patient was boarding in the [facility] Emergency Department for nearly 24 hours. Ultimately a decision was made to transfer the patient to the hospital floor while awaiting bed availability. Chest is he arrived in the hospital floor, [place], [place], called and notified the med surg charge nurse that they would have a bed for him in about 4-8 hours. At around 5:00 p.m. we received confirmation that arrangements could now be made for patient to be transferred. The accepting physician was Dr. Mckenzie. Patient will receive consultation from Neurology and Infectious Disease. In our hospital CT scan an MR scan of the head demonstrated no obvious findings. Once again we opted not to obtain a lumbar puncture given that he is anticoagulated with the rivaroxaban. Decision was made to pursue this assessment after sufficient time has elapsed from the last dose of the rivaroxaban. Patient might also benefit from an EEG study. Additional laboratory studies were obtained were not helpful. We did treat him empirically with vancomycin, ceftriaxone, and acyclovir. Additionally, he received a single dose of azithromycin when he 1st presented given that his prodromal symptoms including URI type symptoms. Imaging studies of the chest did not demonstrate any obvious infiltrates. I meet the patient right before he is being transferred. He is laying in bed with eyes closed. Moves spontaneously. I speak with him in conversation voice any opens his eyes. In time he is able to engage in conversation. Is alert oriented x4 when I converse with him. Complains of being exhausted, tired, weak. Intermittent cough. Cough is nonproductive. Denies any concerns of discomfort or pain. Is not interested in eating or drinking. Review of Systems Status of ROS: Reports: 10 or more systems reviewed and unremarkable except as noted in History and below [facility] Medical History Asthma ?J45.909 - Unspecified asthma, uncomplicated (ICD-10) History of viral encephalitis ?Z86.19 - Personal history of other infectious and parasitic diseases (ICD-10) Coronary artery disease ?I25.10 - Atherosclerotic heart disease of [place] coronary artery without angina pectoris (ICD-10) Palpitations ?R00.2 - Palpitations (ICD-10) Nonsustained ventricular tachycardia ?I47.29 - Other ventricular tachycardia (ICD-10) Paroxysmal supraventricular tachycardia ?I47.10 - Supraventricular tachycardia, unspecified (ICD-10) History of colon polyps ?Z86.0100 - Personal history of colon polyps, unspecified (ICD-10) Premature ventricular contractions ?I49.3 - Ventricular premature depolarization (ICD-10) Hyperlipidemia ?E78.5 - Hyperlipidemia, unspecified (ICD-10) Benign prostatic hyperplasia ?N40.0 - Benign prostatic hyperplasia without lower urinary tract symptoms (ICD-10) Erectile dysfunction ?N52.9 - Male erectile dysfunction, unspecified (ICD-10) History of seizures ?Z87.898 - Personal history of other specified conditions (ICD-10) 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, including shoulder ?C44.699 - 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, including shoulder (ICD-10) Surgical History S/P rotator cuff repair ?Z98.890 - Other specified postprocedural states (ICD-10) History of colonoscopy with polypectomy ?Z98.890 - Other specified postprocedural states (ICD-10) ?Z86.0100 - Personal history of colon polyps, unspecified (ICD-10) Family History Father Gastric cancer Brother Asthma Mother COPD (chronic obstructive pulmonary disease) Social History What is your current living situation?: I presently have a place to live Problems where you live: no known problems Problems where you live details: N/A In the past 12 months, utilities in danger of being shut off: no In past 12 months, lack of transportation kept you from medical appts, meetings, work, or getting things needed for daily living: no In the past 12 mos, have been you worried that your food would run out before you had money to buy more?: never true In the past 12 mos, the food you bought just didn't last and you didn't have money to buy more?: never true Smoking Status: Never smoker How often do you have a drink containing alcohol: monthly or less Alcohol type: beer AUDIT-C Alcohol total score: 1 Non-prescribed substance use: denies use Caffeine: No How often does anyone, including family, friends and others, physically hurt you: never How often does anyone, including family, friends and others, insult or talk down to you: never How often does anyone, including family, friends and others, threaten you with harm: never How often does anyone, including family, friends and others, scream or curse at you: never service: Yes Meds Home Medications and Allergies Home Medications ?Medication ?Instructions ?Recorded ?Confirmed ?Type diltiazem HCl 180 mg 180 mg PO DAILY 09/02/24 09/03/24 History capsule,extended release 24 hr, controlled (DILT-XR) omeprazole 40 mg capsule,delayed 40 mg PO DAILY 09/02/24 09/03/24 History release rivaroxaban 15 mg tablet (Xarelto) 15 mg PO BID 09/02/24 09/02/24 History simvastatin 20 mg tablet 20 mg PO HS 09/02/24 09/03/24 History tamsulosin 0.4 mg capsule 0.4 mg PO HS 09/02/24 09/03/24 History mometasone-formoterol HFA 100 2 puff inhalation BID 09/03/24 09/03/24 History mcg-5 mcg/actuation aerosol inhaler (Dulera) Allergies Allergy/AdvReac Type Severity Reaction Status Date / Time No Known Drug Allergies Allergy Verified 09/02/24 10:16 Exam Narrative: Exam Narrative: Examined patient in his hospital room. Appears comfortable. Laying with eyes closed. Moves spontaneously in his bed. Opens his eyes when I call out his name and speak with him in conversation tone. Alert and oriented x4. Excellent recall of remote history including last time he had a similar episode back in 2004, and also that he has a history of seizures back in the late 1960s early 1970s. Tells me he used to take Dilantin but he weaned himself off of that has not had his seizures since then. No focal motor neurologic deficits. Able to maintain his airway. Lungs with scattered rhonchi that clear with coughing. No wheezing or rales. Heart tones with regular rhythm, normal S1-S2. No murmur, gallop, rub. Abdomen with active bowel sounds, soft, nontender. No rebound or guarding. Extremities without edema. Skin is warm, dry, intact. T-max yesterday 100.4? F. current temperature 98.9? F. Const: Vital Signs, click to edit/add: Vital Signs - 24 hr 09/02/24 18:43 09/02/24 19:48 09/02/24 21:09 Temperature 100.2 F H 100.4 F H 99.2 F Pulse Rate 79 Pulse Rate [Pulse Oximeter] Respiratory Rate 20 Blood Pressure 130/70 Blood Pressure [Le ft Arm] Blood Pressure [Ri ght Upper Arm] Pulse Oximetry 89 Oxygen Delivery Me thod Room Air 09/02/24 21:22 09/02/24 21:55 09/02/24 21:57 Temperature 99.2 F Pulse Rate 91 84 Pulse Rate [Pulse Oximeter] Respiratory Rate Blood Pressure 166/95 H Blood Pressure [Le ft Arm] Blood Pressure [Ri ght Upper Arm] Pulse Oximetry 91 94 Oxygen Delivery Me thod 09/02/24 22:01 09/03/24 07:17 09/03/24 07:53 Temperature 98.4 F Pulse Rate Pulse Rate [Pulse Oximeter] 88 64 Respiratory Rate 20 16 Blood Pressure Blood Pressure [Le ft Arm] Blood Pressure [Ri ght Upper Arm] 166/95 H 172/97 H Pulse Oximetry 93 [facility] 09/03/24 09:53 09/03/24 12:12 09/03/24 13:45 Temperature 98.9 F Pulse Rate Pulse Rate [Pulse Oximeter] 50 L 81 66 Respiratory Rate 16 20 20 Blood Pressure Blood Pressure [Le ft Arm] 120/81 Blood Pressure [Ri ght Upper Arm] 132/68 153/90 H Pulse Oximetry 95 96 [facility] Room Air Room Air 09/03/24 15:00 Temperature Pulse Rate Pulse Rate [Pulse Oximeter] 66 Respiratory Rate 20 Blood Pressure Blood Pressure [Le ft Arm] Blood Pressure [Ri ght Upper Arm] Pulse Oximetry [facility] - H&P: Result Labs Labs: Short CBC 09/03/24 Range/Units 10:20 WBC 7.16 (4.50-11.00) K/uL Hgb 11.0 L (13.5-17.5) gm/dL Hct 37.2 (37.0-53.0) % Plt Count 290 (140-440) K/uL BMP 09/03/24 10:20 Sodium 138 Potassium 3.8 Chloride 104 Carbon Dioxide 26 BUN 15 Creatinine 0.9 Glucose 137 H Calcium 8.8 ECG ECG interpretation date: 09/03/24 Interpretation: Sinus bradycardia Imaging CT scan - head: Attestation: I have reviewed the pertinent imaging results. Radiologist's impression: Findings: There is no intra-axial or extra-axial fluid collection. There is no mass effect or midline shift. There is age-related cortical atrophy with mild sulcal widening and ex vacuo dilatation of the lateral ventricles. There are chronic small vessel disease changes in the subcortical and periventricular white matter without lost philippe-white differentiation. The orbits and their contents are grossly within normal limits. The bony calvarium is grossly intact. There is moderate chronic mucosal thickening with bubbly secretion in the osvm-[id number]-jfjl-right maxillary sinuses. The mastoid air cells are well aerated. Impression: 1. 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 MR Brain: Radiologist's impression: FINDINGS: No evidence of acute ischemia. No evidence of acute or chronic intracranial blood products. No mass or pathologic intracranial enhancement. Scattered FLAIR hyperintensities within the supratentorial white matter, typical for chronic microvascular ischemic change. No hydrocephalus or extra-axial collections. Small hypoenhancing lesion within the left-sided pituitary gland, possibly an adenoma. Posterior fossa is normal. All the major intracranial vascular structures demonstrate normal flow-related signal. The orbital contents are normal. No calvarial or skull base marrow signal abnormality. Polypoid mucosal thickening maxillary sinuses. No extracranial soft tissue findings. IMPRESSION: 1. No acute ischemia or other acute intracranial pathology. 2. No mass or pathologic intracranial enhancement. 3. Minimal chronic microvascular ischemic changes. CT angiogram of chest: Radiologist's impression: FINDINGS: Lower neck: The visualized thyroid is unremarkable. Cardiovascular: Contrast opacification of the pulmonary arterial tree is adequate. Heart size is mildly enlarged. The thoracic aorta is normal in caliber. Mild enlargement of the main pulmonary artery measuring 3.3 cm. No significant atherosclerotic calcifications of the aortic arch. Dense coronary arterial calcifications. No pulmonary embolus. Mediastinum and lymph nodes: Unremarkable. No pathologic mediastinal or hilar lymphadenopathy by size criteria. Lungs: No focal consolidation. Mild pulmonary vascular congestion. Dependent atelectasis. Linear bandlike opacification of the lung bases bilaterally, likely subsegmental atelectasis and/or scarring. Airways: The trachea remains patent and midline. Mild diffuse peribronchial wall thickening. Pleura: No pleural effusions or pneumothorax Chest wall: Unremarkable. Prominent axillary lymph nodes that do not meet size criteria for lymphadenopathy. Bones: No acute osseous abnormalities. Mild degenerative changes of the thoracic spine. Upper abdomen: No acute findings within the visualized upper abdomen. No reflux of contrast material into the IVC. IMPRESSION: 1. No pulmonary embolus. No CT evidence of right heart strain. 2. Cardiomegaly with mild pulmonary vascular congestion. Mildly enlarged main pulmonary artery is nonspecific and can be seen the setting of pulmonary arterial hypertension. Assessment and Plan Assessment and plan (1) Acute alteration in mental status: Problem comment: - likely due to evolving encephalitis Status: Acute (2) Encephalitis: Problem comment: - most likely viral in nature - started empirically on IV vancomycin, IV ceftriaxone, and IV acyclovir - lumbar puncture not performed due to patient being anticoagulated with rivaroxaban. Await 72 hours from last dose of rivaroxaban before proceeding with lumbar puncture. - will transfer patient to [place], [place], with patient having been accepted by Dr. Mckenzie and appropriate specialists involvement to further assess and treat - reviewed with patient and . They are agreeable. Status: Acute Total Time Spent Total Time Spent: 75 minute
--- NOTE | 2024-09-03 18:40 | PC.NURSE ---
shift note: report via phone given to Caleb GILMAN at [facility] on pt's status prior to transfer. pt transfer via EMS @ 1830.
[2024-09-04 23:48] LABS: Lyme ELISA Reflex 0.16 IV (<=0.90)
== END 2024-09-03 18:41 | disposition short-term general hospital (02) | DRG 99 ==
LOC: ED 09-03 13:15 → MEDSURG 09-03 13:37
PROVIDERS: Family Medicine; Admitting Provider Family Medicine; Emergency Provider Emergency Medicine; PCP Family Medicine; Visit Provider Family Medicine
DX: A86 Unspecified viral encephalitis (principal); J06.9 Acute upper respiratory infection, unspecified; R41.82 Altered mental status, unspecified; Z86.19 Personal history of other infectious and parasitic diseases; Z86.61 Personal history of infections of the central nervous system; I80.01 Phlebitis and thrombophlebitis of superficial vessels of right lower extremity; Z79.01 Long term (current) use of anticoagulants; D64.9 Anemia, unspecified; N40.0 Benign prostatic hyperplasia without lower urinary tract symptoms; I25.10 Atherosclerotic heart disease of native coronary artery without angina pectoris; J45.909 Unspecified asthma, uncomplicated
CPT/HCPCS: 36415; 70450; 70553; 71275; 80048; 80053; 81001; 82077; 82140; 82375; 82803; 83605; 84145; 84484; 85025; 85651; 86140; 86618; 87040; 87631; 93005; 99285; A9270; A9575; J0133; J0456; J0696; J1100; J2060; J3372; J7030; J7050; Q9967

== ENCOUNTER 2024-09-03 18:26 | Outpatient (CLI) | payer MEDICARE, BC, SELFPAY | END 2024-09-03 18:27 | disposition home or self-care (01) | LOC: AMB 09-07 11:04 | PROVIDERS: PCP Family Medicine; Visit Provider Emergency Medicine | DX: G93.9 Disorder of brain, unspecified (principal); R41.82 Altered mental status, unspecified | CPT/HCPCS: A0425; A0429 ==